=== PATIENT | female | born 1935 | race Caucasian/White ===

== ENCOUNTER 2019-10-01 07:13 | Outpatient (CLI) | payer MEDICARE, SELFPAY ==
[2019-10-01 07:47] LABS: Hematocrit 39.5 % (37.0-47.0); Hemoglobin 13.3 g/dL (12.0-15.0); Mean Corpuscular HGB Conc 33.7 g/dl (32-36); Mean Corpuscular Hemoglobin 33.2 pg (26-34); Mean Corpuscular Volume 98.5 fl (80-100); Platelet Count Result 314 k/mm3 (150-375); Red Blood Count 4.01 M/mm3 (4.2-5.4); Red Cell Distribution Width 13.1 % (11.5-14.5); White Blood Count 7.7 K/mm3 (4.5-10.0)
[2019-10-01 07:57] LABS: Hemoglobin A1C 6.1 % (<5.7)
[2019-10-01 08:06] LABS: Alanine Aminotransferase 16 U/L (4-35); Albumin Level 4.7 g/dL (3.5-5.1); Alkaline Phosphatase 68 U/L (38-126); Aspartate Amino Transferase 22 U/L (14-36); Bilirubin,Total 0.4 mg/dL (0.2-1.3); Blood Urea Nitrogen 16 mg/dL (7-17); Calcium 9.8 mg/dL (8.4-10.2); Carbon Dioxide 22 mmol/L (22-30); Chloride 106 mmol/L (98-107); Estimated Glomerular Filt Rate 48; Glucose 123 mg/dL (65-105); Potassium 4.8 mmol/L (3.4-5.0); Sodium 137 mmol/L (137-145)
[2019-10-01 08:34] LABS: Vitamin D 25 Hydroxy 53.8 ng/mL
== END 2019-10-01 07:14 | disposition home or self-care (01) ==
LOC: ANHLAB 07:15
PROVIDERS: PCP Family Medicine; Visit Provider Family Medicine
DX: E55.9 Vitamin D deficiency, unspecified (principal); E11.9 Type 2 diabetes mellitus without complications; R20.2 Paresthesia of skin; R53.83 Other fatigue; N18.3 Chronic kidney disease, stage 3 (moderate); D64.9 Anemia, unspecified
CPT/HCPCS: 36415; 80053; 82306; 83036; 84443; 85027

== ENCOUNTER 2020-06-15 09:00 | Outpatient (CLI) | payer MEDICARE, SELFPAY | END 2020-06-15 09:01 | disposition home or self-care (01) | LOC: ANHCOVIDVC 09:00 | PROVIDERS: PCP Family Medicine | DX: Z23 Encounter for immunization (principal) | CPT/HCPCS: 0001A; 91300 ==

== ENCOUNTER 2020-07-06 08:55 | Outpatient (CLI) | payer MEDICARE, SELFPAY | END 2020-07-06 08:56 | disposition home or self-care (01) | LOC: ANHCOVIDVC 08:55 | PROVIDERS: PCP Family Medicine | DX: Z23 Encounter for immunization (principal) | CPT/HCPCS: 0002A; 91300 ==

== ENCOUNTER 2020-07-19 07:06 | Outpatient (CLI) | payer MEDICARE, SELFPAY ==
[2020-07-19 07:42] LABS: Alanine Aminotransferase 17 U/L (4-35); Albumin Level 4.7 g/dL (3.5-5.1); Alkaline Phosphatase 59 U/L (38-126); Anion Gap 6 mmol/L (8-16); Aspartate Amino Transferase 29 U/L (14-36); Bilirubin,Total 0.2 mg/dL (0.2-1.3); Blood Urea Nitrogen 14 mg/dL (7-17); Calcium 9.6 mg/dL (8.4-10.2); Carbon Dioxide 31 mmol/L (22-30); Chloride 101 mmol/L (98-107); Cholesterol 183 mg/dL (0-200); Estimated Glomerular Filt Rate 47; Glucose 113 mg/dL (65-105); HDL Direct 46 mg/dL; Potassium 4.2 mmol/L (3.4-5.0); Sodium 138 mmol/L (137-145); Triglycerides 246 mg/dL (<150)
[2020-07-19 07:52] LABS: Iron 67 ug/dL (37-170)
[2020-07-19 07:53] LABS: Hematocrit 39.3 % (37.0-47.0); Hemoglobin 13.1 g/dL (12.0-15.0); Mean Corpuscular HGB Conc 33.3 g/dl (32-36); Mean Corpuscular Hemoglobin 33.5 pg (26-34); Mean Corpuscular Volume 100.5 fl (80-100); Mean Platelet Volume 10.4 fl (7.4-10.4); Platelet Count Result 300 k/mm3 (150-375); Red Blood Count 3.91 M/mm3 (4.2-5.4); Red Cell Distribution Width 13.4 % (11.5-14.5)
[2020-07-19 08:08] LABS: Percent Iron Saturation 26 % (20-50)
[2020-07-19 08:10] LABS: LDL Cholesterol Direct 89 mg/dL
[2020-07-19 08:20] LABS: Hemoglobin A1C 5.9 % (<5.7)
[2020-07-19 09:07] LABS: Folic Acid > 20.0 ng/mL (2.76->20)
== END 2020-07-19 07:07 | disposition home or self-care (01) ==
PROVIDERS: PCP Family Medicine; Visit Provider Family Medicine
DX: E78.2 Mixed hyperlipidemia (principal); E11.9 Type 2 diabetes mellitus without complications; E53.8 Deficiency of other specified B group vitamins; D50.9 Iron deficiency anemia, unspecified; I10 Essential (primary) hypertension
CPT/HCPCS: 36415; 80053; 80061; 82607; 82728; 82746; 83036; 83540; 83550; 84443; 85027

== ENCOUNTER 2021-01-17 09:59 | Outpatient (CLI) | payer MEDICARE, SELFPAY ==
--- NOTE | 2021-01-17 10:41 | ECHO_ITS ---
Patient Info Name: Yvette Charles Age: 85 years : 1935 Gender: Female Ht: 65 in Wt: 149 lbs BSA: 1.77 m2 HR: 101 bpm BP: 179 / 54 mmHg Heart Rhythm: Sinus Rhythm Exam Date: 01/17/2021 10:48 AM Exam Location: [facility] Patient Status: Outpatient Admit Date: 01/17/2021 Staff Ordering Physician: Erin Hou MD Surtass Analyst: Jennifer Rey RDCS Attending Provider: Erin Hou MD Referring Physician: Ameya GURROLA; Exam Type: CA echo doppler color flow Study Info Indications I35.0 - Nonrheumatic aortic (valve) stenosis Complete two-dimensional, color flow and Doppler transthoracic echocardiogram is performed. Summary 1. Complete two-dimensional, color flow and Doppler transthoracic echocardiogram is performed. 2. Left ventricular chamber dimension is normal. 3. Left ventricular systolic function is hyperdynamic, estimated at >70%. 4. There is mildly increased left ventricular wall thickness. 5. The left ventricular diastolic function is grade I diastolic dysfunction. 6. E/e' 29 is significantly elevated. 7. Left atrial chamber dimension is mildly enlarged. 8. There is severe aortic valve sclerosis. 9. There is severe aortic valve stenosis with a peak velocity of 350 cm/s, mean gradient of 31 mmHg, and aortic valve area of 0.8 cm2. 10. The mitral valve has not well visualized, severely calcified leaflets and severely calcified annulus. 11. There is moderate mitral valve stenosis based on valve area of 1.1 cm2 by continuity equation and mean gradient of 5 mmHg and peak gradient of 17 mmHg. Left Ventricle E/e' 29 is significantly elevated. Left ventricular chamber dimension is normal. Left ventricular systolic function is hyperdynamic, estimated at >70%. There is mildly increased left ventricular wall thickness. The left ventricular diastolic function is grade I diastolic dysfunction. Right Ventricle Right ventricular systolic function is normal and with normal TAPSE 1.8 cm.. Right ventricular chamber dimension is normal. Left Atria Left atrial chamber dimension is mildly enlarged. Right Atria Right atrial chamber dimension is normal. Aortic Valve The aortic valve is probable trileaflet. There is severe aortic valve sclerosis. There is severe aortic valve stenosis with a peak velocity of 350 cm/s, mean gradient of 31 mmHg, and aortic valve area of 0.8 cm2. There is no aortic valve regurgitation. Pulmonic Valve There is no pulmonic regurgitation. Mitral Valve The mitral valve has not well visualized, severely calcified leaflets and severely calcified annulus. There is moderate mitral valve stenosis based on valve area of 1.1 cm2 by continuity equation and mean gradient of 5 mmHg and peak gradient of 17 mmHg. There is no mitral valve regurgitation. Tricuspid Valve There is no tricuspid valve regurgitation. Pericardium/Pleural There is no pericardial effusion. Inferior Vena Cava Normal inferior vena cava with >50% collapse upon inspiration consistent with normal right atrial pressure, 5 mmHg. Aorta The aortic root size at the sinus of Valsalva is normal. Left Ventricular Outflow Tract Name Value Normal LVOT 2D LVOT Diameter 1.7 cm LVOT Doppler
== END 2021-01-17 10:00 | disposition home or self-care (01) ==
LOC: ANHCARD 10:00
PROVIDERS: PCP Family Medicine; Visit Provider Family Medicine
DX: I35.0 Nonrheumatic aortic (valve) stenosis (principal)
CPT/HCPCS: 93306

== ENCOUNTER 2021-03-21 08:45 | Outpatient (CLI) | payer MEDICARE, SELFPAY ==
[2021-03-21 09:25] LABS: Hematocrit 36.7 % (37.0-47.0); Hemoglobin 11.8 g/dL (12.0-15.0); Mean Corpuscular HGB Conc 32.2 g/dl (32-36); Mean Corpuscular Hemoglobin 33.1 pg (26-34); Mean Corpuscular Volume 102.8 fl (80-100); Mean Platelet Volume 9.6 fl (7.4-10.4); Platelet Count Result 375 k/mm3 (150-375); Red Blood Count 3.57 M/mm3 (4.2-5.4); Red Cell Distribution Width 13.5 % (11.5-14.5); White Blood Count 9.2 K/mm3 (4.5-10.0)
[2021-03-21 09:37] LABS: Hemoglobin A1C 5.2 % (<5.7)
[2021-03-21 09:42] LABS: Alanine Aminotransferase 15 U/L (4-35); Albumin Level 4.5 g/dL (3.5-5.1); Alkaline Phosphatase 71 U/L (38-126); Anion Gap 11 mmol/L (8-16); Aspartate Amino Transferase 25 U/L (14-36); Bilirubin,Total 0.2 mg/dL (0.2-1.3); Blood Urea Nitrogen 15 mg/dL (7-17); Carbon Dioxide 18 mmol/L (22-30); Chloride 105 mmol/L (98-107); Cholesterol 202 mg/dL (0-200); Estimated Glomerular Filt Rate 39; Glucose 107 mg/dL (65-110); HDL Direct 48 mg/dL; Potassium 4.8 mmol/L (3.4-5.0); Sodium 134 mmol/L (137-145); Triglycerides 282 mg/dL (<150)
[2021-03-21 09:52] LABS: LDL Cholesterol Direct 82 mg/dL
== END 2021-03-21 08:46 | disposition home or self-care (01) ==
PROVIDERS: PCP Family Medicine; Visit Provider Family Medicine
DX: R53.83 Other fatigue (principal); I10 Essential (primary) hypertension; E11.9 Type 2 diabetes mellitus without complications; E78.2 Mixed hyperlipidemia
CPT/HCPCS: 36415; 80053; 80061; 83036; 84443; 85027

== ENCOUNTER 2021-08-12 18:49 | Observation (INO) | payer MEDICARE, SELFPAY ==
--- NOTE | ~2021-08-12 | XR_ITS ---
EXAMINATION: XR chest 2V Exam Date/Time: 08/12/2021 19:20 CDT CLINICAL HISTORY: WEAK,CP DOWN LT SIDE ARM LAST NIGHT,COUGH X2WKS,HTN Comparison: 10/27/2016.. RESULT: Lines, tubes, and devices: None. Lungs and pleura: Senescent change and old granulomatous disease, otherwise clear. Cardiomediastinal silhouette: Stable cardiomediastinal silhouette. Other: No acute osseous or upper abdominal finding. IMPRESSION: No acute cardiopulmonary process Reviewed, dictated and finalized at location K.
--- NOTE | 2021-08-12 18:55 | ECG_ITS ---
Measurements Intervals [place] Rate: 87 P: 28 KS: 165 QRS: 40 QRSD: 78 T: 39 QT: 379 QTc: 457 Interpretive Statements SINUS RHYTHM VENTRICULAR PREMATURE COMPLEXES POSSIBLE LEFT ATRIAL ENLARGEMENT BORDERLINE ST ABNORMALITY- ANTEROLAT/INF LEADS BASELINE ARTIFACT- I, II, III, AVR BORDERLINE ECG Electronically Signed On 08-12-2021 19:58:29 CDT by Simone Claros D.O.
[2021-08-12 18:56] VITALS: BP 146/100; PULSE 90; RESP 18; TEMP 36.2; O2SAT 100
[2021-08-12 19:13] LABS: Basophils Percent Auto 0.2 % (0.2-1.2); Eosinophils Percent Auto 0.3 % (0-4.4); Hematocrit 30.4 % (37.0-47.0); Hemoglobin 9.9 g/dL (12.0-15.0); Immature Granulocyte Absolute 0.08 K/mm3 (0.00-0.031); Immature Granulocyte Percent A 0.6 % (0-0.5); Lymphocytes Absolute Auto 2.79 K/mm3 (0.9-3.2); Lymphocytes Percent Auto 20.1 % (18.3-44.2); Mean Corpuscular HGB Conc 32.6 g/dl (32-36); Mean Corpuscular Hemoglobin 32.8 pg (26-34); Mean Corpuscular Volume 100.7 fl (80-100); Mean Platelet Volume 9.8 fl (7.4-10.4); Monocytes Absolute Auto 1.4 K/mm3 (0.1-0.6); Neutrophils Absolute Auto 9.6 K/mm3 (1.3-6.7); Neutrophils Percent Auto 68.8 % (45.5-73.1); Platelet Count Result 358 k/mm3 (150-375); Red Blood Count 3.02 M/mm3 (4.2-5.4); Red Cell Distribution Width 13.8 % (11.5-14.5); White Blood Count 13.9 K/mm3 (4.5-10.0)
[2021-08-12 19:22] LABS: Alanine Aminotransferase 14 U/L (4-35); Albumin Level 4.1 g/dL (3.5-5.1); Alkaline Phosphatase 74 U/L (38-126); Anion Gap 10 mmol/L (8-16); Aspartate Amino Transferase 28 U/L (14-36); Bilirubin,Total < 0.1 mg/dL (0.2-1.3); Blood Urea Nitrogen 20 mg/dL (7-17); Calcium 8.7 mg/dL (8.4-10.2); Carbon Dioxide 18 mmol/L (22-30); Chloride 104 mmol/L (98-107); Estimated CRCL calculation 26 ml/min; Estimated Glomerular Filt Rate 39; Glucose 160 mg/dL (65-110); INR 1.2; Potassium 3.8 mmol/L (3.4-5.0); Prothrombin Time 14.9 Seconds (11.1-14.7); Sodium 132 mmol/L (137-145)
[2021-08-12 19:41] VITALS: BP 124/82; PULSE 104; RESP 18; O2SAT 100; O2SAT 97
[2021-08-12 19:52] LABS: Troponin I 0.819 ng/mL (0.000-0.034)
--- NOTE | 2021-08-12 19:56 | ED.GENADULT ---
HPI - General Adult General Chief complaint: Shortness of Breath/Dyspnea Stated complaint: sob Time Seen by Provider: 08/12/21 19:27 History of Present Illness HPI narrative: Patient is an 86-year-old female who presents the ER with chest pain. Intermittent since yesterday at 6 PM. Pain will last for couple hours at a time. Radiates to her left shoulder and then down her left arm. Symptoms are worsened with exertion. Better with sitting down. Patient initially felt like she might and prefers to at home so she did not call anybody. After making it through the night she contacted her daughters who encouraged her to come to the ER for further evaluation. Patient denies history of coronary disease. No history of cardiac stents. She reports history of mild aortic stenosis, echo from 2020 shows severe . She is seen Dr. Nguyen in the past. Patient also has been treated for UTI recently and is concerned that it was not adequately treated. No overt dysuria or urinary frequency. No fevers or chills. Related Data Allergies Allergy/AdvReac Type Severity Reaction Status Date / Time iron Allergy Unknown Nausea Verified 08/12/21 19:00 Isvsith-IEK-AjL Reductase Allergy Unknown SOME CAUSE Verified 08/12/21 19:00 Inhibitor SEVERE LEG [Geidkho-Bhh-Yoz Reductase CRAMPS Inhibitor] Egg Yolk Allergy Unknown N/V Uncoded 08/12/21 19:00 Review of Systems Review of Systems: All systems reviewed & are unremarkable except as noted in HPI and below Constitutional: Constitutional: Denies chills, Denies fever(s) and Reports weakness ENT: Denies nasal congestion and Denies sore throat Cardiovascular: Cardiovascular: Reports chest pain, Denies rapid heart rate and Reports radiating jaw, neck or arm pain Respiratory: Respiratory: Denies cough, Reports dyspnea and Denies wheezing Gastrointestinal: Gastrointestinal: Denies abdominal pain, Denies diarrhea, Reports nausea and Denies vomiting Neurologic: Denies syncope, Denies focal weakness and Denies numbness PMF Past Medical History Medical History (Updated 08/13/21 @ 00:10 by Bárbara Small DO) Anxiety Aortic stenosis Severe aortic stenosis noted on echocardiogram 01/2021 valve area 0.8, EF 70%, grade 1 diastolic dysfunction Chronic renal insufficiency, stage III (moderate) Cystitis Diabetic neuropathy Essential hypertension Functional diarrhea H/O Malignant melanoma Excised from her nose Hyperlipidemia associated with type 2 diabetes mellitus Intolerant to statins Iron deficiency anemia Memory loss Moderate mitral valve stenosis Stenosis of left carotid artery Type 2 diabetes mellitus Vitamin B12 deficiency Surgical History Surgical History (Updated 08/12/21 @ 20:59 by Bárbara Small DO) H/O: hysterectomy History of appendectomy History of left-sided carotid endarterectomy (02/2016) History of tonsillectomy and adenoidectomy Family History Family History (Updated 08/12/21 @ 21:01 by Bárbara Small DO) Father , At age 102 Family history of glaucoma Mother , At age 74 Breast cancer Daughter Diabetes mellitus Social History Social History (Updated 08/13/21 @ 00:11 by Bárbara Small DO) Social History: She lives in her own home. She is . Code status: DNR/DNI Surrogate decision maker: She wishes the responsibility to be was shared between her 3 daughters. Smoking status: Never smoker Second hand tobacco smoke exposure: No Alcohol intake: never Substance use: current Substance use type: does not use Gender identity (if verbalized by the patient): Female Spiritual care concerns: No Exam Narrative: GENERAL: Fatigued-appearing, well-nourished, and in no acute distress. HEAD: Normocephalic, atraumatic. ENT: Mucous membranes moist. CHEST: Clear to auscultation. No respiratory distress. Mild discomfort with palpation over left lateral chest wall superior to the breast. HEART: Regu
[2021-08-12] MEDS: ASPIRIN 81 MG CHEWABLE TABLET 324 MG PO (20:08)
[2021-08-12] MEDS: HEPARIN SODIUM 5,000 UNITS/ML VIAL 4000 UNITS IV PUSH (20:10)
[2021-08-12 20:31] LABS: NT Pro B Type Natriuretic Pept 7750 pg/mL (5-100)
[2021-08-12] MEDS: MORPHINE SULFATE (*CRX) 4 MG/ML INJ IV PUSH (20:42)
[2021-08-12] MEDS: HEPARIN SOD/D5W 100 UNITS/ML 25,000 UNITS/250 ML BAG 8 UNITS IV CONT (20:47)
[2021-08-12 20:52] VITALS: BP 139/68; PULSE 89; RESP 22; O2SAT 92; O2SAT 93
--- NOTE | 2021-08-12 20:52 | PM.IMHP ---
H&P: HPI History of Present Illness Date/Time: 08/12/21 22:40 Chief Complaint: Chest pain Narrative: 86-year-old female with past medical history of severe aortic stenosis, moderate mitral valve stenosis, hypertension, diabetes, carotid stenosis status post endarterectomy and hypertension who presented to the ER with chest pain and shortness of breath. The patient reports that she has been having dyspnea on exertion since last year. Her dyspnea on exertion has worsened over the last several days. Last night she was sitting watching TV when she developed sudden onset of left chest pain that radiated down her left arm. This pain with accompanied by cold sweats and nausea. She took 2 aspirins and went to bed. Her pain did improve after the aspirins but a took quite some time to resolve. Eventually her pain did resolve in she was able to fall asleep. However when she woke up in the morning and had recurrence of chest pain. Pain was worse with any movement or activity. She reports that the pain will last quite some time prior to improving. It sounds as if the pain did not completely resolve all day. She did take a couple more doses of aspirin with some improvement in her symptoms. She also took an Lucila-Blair for some stomach upset. She reports feeling nauseated but not having any vomiting. The nausea came on after the chest pain had already started. She denies any lower extremity swelling. She has noticed some sensation of heart racing associated with her chest pain. Her heart rate was normal in the ER. Her pain was a 10/10 in intensity last night. She reported that the pain was so bad she was that she would just thighs although it would go away. She denies any suicidal ideation. Her pain when she came to the ER with a 5/10 in intensity improved down to 3/10 in intensity prior to leaving the ER. By the time she arrived to the IMU her pain was gone. She is still having some headache. She reports that her chronic shortness breath has improved with 2 L nasal cannula applied in the ER. The patient had not had any documented hypoxia. She denies frequent headache. She did have recent urinary tract infection but denies any persistent symptoms. She has chronic functional diarrhea and loose stools that is unchanged from baseline. She denies any hematochezia or melena. She has chronic pain from external hemorrhoids. She does have diabetic peripheral neuropathy it is worse in her left foot than her right. She reports that her sense of taste has been off for the last year. She has subsequently had decreased appetite and thinks that she has may have had some weight loss. Review of Systems Review of Systems: 12 systems were reviewed with pertinent positives and negatives per HPI. Except as documented in the HPI, all other systems were reviewed and are negative. [facility] Past Medical History Medical History (Updated 08/13/21 @ 00:10 by Bárbara Small DO) Anxiety Aortic stenosis Severe aortic stenosis noted on echocardiogram 01/2021 valve area 0.8, EF 70%, grade 1 diastolic dysfunction Chronic renal insufficiency, stage III (moderate) Cystitis Diabetic neuropathy Essential hypertension Functional diarrhea H/O Malignant melanoma Excised from her nose Hyperlipidemia associated with type 2 diabetes mellitus Intolerant to statins Iron deficiency anemia Memory loss Moderate mitral valve stenosis Stenosis of left carotid artery Type 2 diabetes mellitus Vitamin B12 deficiency Surgical History Surgical History (Updated 08/12/21 @ 20:59 by Bárbara Small DO) H/O: hysterectomy History of appendectomy History of left-sided carotid endarterectomy (02/2016) History of tonsillectomy and adenoidectomy Family History Family History (Updated 08/12/21 @ 21:01 by Bárbara Small DO) Father , At age 102 Family history of glaucoma Mother , At age 74 Breast cancer Daughter Diabetes mellitus Social History Socia
[2021-08-12 22:02] VITALS: BP 128/72; PULSE 78; RESP 23; O2SAT 98
[2021-08-12 22:57] LABS: Add Urine Microscopic? YES; Appearance Urine Clear (Clear); Bacteria Urine Trace /hpf; Bilirubin Urine Negative (Negative); Color Urine Yellow (Yellow); Glucose Urine UA Negative (Negative); Ketones Urine Negative (Negative); Leukocyte Esterase Ur Trace LEU/UL (Negative); Nitrate Urine Negative (Negative); Protein Urine 1+ mg/dL (Negative); Specific Grav Ur 1.023 (1.001-1.035); Urobilinogen Urine Negative mg/dL (<2.0)
--- NOTE | 2021-08-12 23:00 | ADMGEN ---
This patient, Yvette Charles, was admitted to IMU Room 202-01. Patient/family oriented to hospital policies and general routines including ID bracelet, bed and alarms, visiting hours, pain management, procedures, bathroom and other care routines, personal items, smoking policy, room service/diet, and visiting hours. Information on how to activate the Rapid Response Team has been discussed. Patient/Family are encouraged to report perceived risks to care and to ask questions if they do not understand what they are told or what they should do.
[2021-08-12 23:01] LABS: Blood Urine Negative (Negative)
[2021-08-12 23:14] VITALS: BP 128/51; PULSE 85; RESP 18; TEMP 35.9; O2SAT 99
[2021-08-12 23:16] VITALS: BMI 24.6
[2021-08-12 23:21] LABS: Troponin I 0.985 ng/mL (0.000-0.034)
[2021-08-12 23:32] VITALS: PULSE 82; O2SAT 98
[2021-08-13] VITALS (19 sets, daily range): BP systolic 100–117; BP diastolic 38–68; PULSE 79–105; RESP 18–22; TEMP 36.1–36.6; O2SAT 92–100
[2021-08-13 03:19] LABS: Basophils Percent Auto 0.2 % (0.2-1.2); Eosinophils Percent Auto 0.1 % (0-4.4); Hematocrit 31.7 % (37.0-47.0); Hemoglobin 10.3 g/dL (12.0-15.0); Immature Granulocyte Absolute 0.06 K/mm3 (0.00-0.031); Immature Granulocyte Percent A 0.4 % (0-0.5); Lymphocytes Absolute Auto 2.12 K/mm3 (0.9-3.2); Lymphocytes Percent Auto 15.6 % (18.3-44.2); Mean Corpuscular HGB Conc 32.5 g/dl (32-36); Mean Corpuscular Hemoglobin 32.4 pg (26-34); Mean Corpuscular Volume 99.7 fl (80-100); Mean Platelet Volume 9.7 fl (7.4-10.4); Monocytes Percent Auto 7.1 % (2.6-8.5); Neutrophils Absolute Auto 10.4 K/mm3 (1.3-6.7); Neutrophils Percent Auto 76.6 % (45.5-73.1); Platelet Count Result 364 k/mm3 (150-375); Red Blood Count 3.18 M/mm3 (4.2-5.4); Red Cell Distribution Width 13.7 % (11.5-14.5); White Blood Count 13.6 K/mm3 (4.5-10.0)
[2021-08-13] MEDS: MORPHINE SULFATE (*CRX) 4 MG/ML INJ IV PUSH ×2 (03:30→20:21)
[2021-08-13 03:32] LABS: Partial Thromboplastin Time 98.7 SECONDS (22.3-36.8)
[2021-08-13] MEDS: ONDANSETRON INJ 4 MG/2 ML VIAL IV PUSH ×2 (03:35→20:19)
--- NOTE | 2021-08-13 04:03 | ECG_ITS ---
Measurements Intervals [place] Rate: 98 P: 30 RI: 142 QRS: 50 QRSD: 76 T: 5 QT: 351 QTc: 449 Interpretive Statements SINUS RHYTHM VENTRICULAR TRIGEMINY POSSIBLE LEFT ATRIAL ENLARGEMENT ST-T WAVE ABNORMALITY IN ANTEROLAT/INF LEADS- CONSIDER ISCHEMIA ABNORMAL ECG Electronically Signed On 08-13-2021 9:24:13 CDT by Simone Claros D.O.
[2021-08-13 08:37] LABS: Glucose Point of Care 150 mg/dl (65-105)
--- NOTE | 2021-08-13 08:52 | PM.CNCAR ---
Assessment and Plan Additional Plan This is a pleasant but unfortunate 86-year-old lady who comes into the hospital with symptoms of discomfort or she calls it distress in the region of the left shoulder into the interscapular region and down into the leg as well. The symptoms for that reason are somewhat unusual or atypical for ACS. She on examination today appears to have some very mild CHF. As stated in my note she is known to have severe aortic valve stenosis and in the office in February had made the decision not to pursue effective treatment of this. For this reason and the fact that she is a DNR patient she is not an appropriate candidate for being brought to the cardiac catheterization lab since she is declining affective treatment of her aortic valve disease. I will add some nitro paste and furosemide to her regimen today as she does appear to be in some mild CHF this morning. If she reconsiders her decisions regarding her code status and her willingness to undergo aortic valve replacement then she should be transferred to a facility where aortic valve replacement can occur. At this time conservative care is appropriate. Ryder Hanks MD [facility] History of Present Illness History of Present Illness Consult date/time: 08/13/21 08:52 Consult reason: chest pain and aortic stenosis Reason For Visit: NSTEMI Narrative: This is an 86-year-old woman I am seeing at the request of the hospitalist this morning because of some chest pain and elevation in her troponin levels that were sampled following admission and being seen in the emergency room yesterday. The patient states that she was in her usual state of health until Friday evening of this past weekend. She states that in general in the last couple of years she thinks she is failing in getting weaker. On Friday evening she noticed the onset of which she said is a sense of distress in her left shoulder in her left arm in the interscapular region and also down into the left leg. She has a very hard time explaining this symptom or describing it as a pain but she said it was a sense of distress. She lives alone with daughters nearby. She took a couple of aspirin tablets and went to bed. She thinks that eventually this at the symptoms did improve. When she got up on Friday she was still having some of this and feeling weak and a little bit more short of breath. She told her daughter that she would not feel well enough to go to sabianist with her yesterday morning and apparently later in the day her daughter came by and they had a visit in the home. Because of these symptoms there was discussion about coming to the hospital for evaluation. The patient initially stated she did not wish to be hospitalized because she does not want any big procedures or operations performed. She said she has made this clear to her family as well. After a longer discussion however the decision was made to come to the emergency room for evaluation. Her electrocardiogram shows a sinus mechanism with some PVCs. There is some nonspecific inferolateral ST segment depression. Troponin levels of course were sampled and they are mild to moderately elevated. The initial sample was 0.8 and it regina slightly to 1.1. She was placed on a heparin infusion and admitted to the hospital. The patient has a known history of significant aortic valve disease with aortic stenosis and was seen in consultation in February of 2021 in our office by Dr. Nguyen. At that time apparently she had had an echocardiogram done to evaluate her cardiac murmur at the request of her PCP but she was not reporting any symptoms. A discussion was had with the patient about a workup for aortic valve replacement and she declined any consideration of treating her aortic valve disease. It should also be noted that on admission to the hospital she is a do not resuscitate status. She has been kept NPO since admission for the possibility of catheterization. At th
[2021-08-13] MEDS: LOSARTAN POTASSIUM 100 MG TABLET PO (08:53)
[2021-08-13] MEDS: ATORVASTATIN 10 MG TABLET PO (08:54)
[2021-08-13] MEDS: METOPROLOL SUCCINATE EXT REL 50 MG TABCR PO (08:54)
[2021-08-13] MEDS: CITALOPRAM HYDROBROMIDE 20 MG TABLET PO (08:54)
[2021-08-13] MEDS: FUROSEMIDE INJ 40 MG/4 ML VIAL IV PUSH (08:57)
[2021-08-13] MEDS: NITROGLYCERIN OINTMENT 1 INCH DOSE 0.5 INCH TRANSDERM ×3 (09:00→20:16)
[2021-08-13] MEDS: ACETAMINOPHEN 325 MG TABLET 650 MG PO ×3 (10:10→22:12)
[2021-08-13 10:13] LABS: Partial Thromboplastin Time 72.1 SECONDS (22.3-36.8)
[2021-08-13 12:30] LABS: Glucose Point of Care 193 mg/dl (65-105)
--- NOTE | 2021-08-13 15:49 | PM.IMPN ---
Progress Note: A&P Assessment and Plan (1) Non-ST elevation UT (NSTEMI): Code(s): I21.4 - Non-ST elevation (NSTEMI) myocardial infarction Status: Acute Assessment and Plan: Management per Cardiology, concurrently on aspirin, Lipitor, losartan, metoprolol. Was previously on a heparin drip, this was discontinued. Consider adding Plavix. (2) Severe aortic stenosis: Code(s): I35.0 - Nonrheumatic aortic (valve) stenosis Status: Acute Assessment and Plan: Would recommend aortic valve replacement discussion, risks versus benefits, with Cardiology (3) Type 2 diabetes mellitus without complication, without long-term current use of insulin: Code(s): E11.9 - Type 2 diabetes mellitus without complications Status: Acute Assessment and Plan: Controlled on metformin, consistently with an A1c under 7, does not appear to have been checked recently, will order (4) Hyperlipidemia associated with type 2 diabetes mellitus: Code(s): E11.69 - Type 2 diabetes mellitus with other specified complication; E78.5 - Hyperlipidemia, unspecified Status: Acute Assessment and Plan: Unable to tolerate statins Subjective Date/time seen: 08/13/21 15:49 Patient resting comfortably without any symptoms. She denies chest pain, shortness a breath, nausea vomiting or diarrhea. No fevers or chills. She is currently not interested in pursuing interventional procedures at this time. Review of Systems Review of Systems: All systems reviewed & are unremarkable except as noted in HPI and below Exam Const: General: no acute distress HENMT: Mouth: Yes moist mucous membranes Eyes: General: appearance normal, both eyes and all related structures Neck: Neck: no JVD Resp: Auscultation: clear to auscultation bilaterally Cardio: Rate: regular rate Rhythm: regular rhythm Heart sounds: Murmur heart sound present GI: GI Palp: Yes Soft to palpation and No Tenderness to palpation present (GI) Psych: Mental Status: mental status grossly normal Objective Data Vital Signs Vital Signs: Vital Signs - 24 hr 08/12/21 18:56 08/12/21 19:41 08/12/21 20:52 Temperature 97.1 F L Pulse Rate 90 104 H 89 Respiratory Rate 18 18 22 H Blood Pressure 146/100 H 124/82 139/68 Pulse Oximetry 100 100 93 08/12/21 22:02 08/12/21 23:14 08/12/21 23:32 Temperature 96.7 F L Pulse Rate 78 85 82 Respiratory Rate 23 H 18 Blood Pressure 128/72 128/51 L Pulse Oximetry 98 99 98 08/13/21 02:00 08/13/21 03:23 08/13/21 04:00 Temperature 97 F L Pulse Rate 88 104 H 94 Respiratory Rate 22 H 22 H Blood Pressure 117/68 Pulse Oximetry 100 100 08/13/21 06:00 08/13/21 08:00 08/13/21 08:54 Temperature 97.3 F L Pulse Rate 96 90 97 Respiratory Rate 18 Blood Pressure 100/68 Pulse Oximetry 100 08/13/21 10:00 08/13/21 12:00 08/13/21 12:59 Temperature 97.9 F Pulse Rate 95 87 Respiratory Rate 18 Blood Pressure 100/38 L Pulse Oximetry 98 96 08/13/21 14:00 Temperature Pulse Rate 89 Respiratory Rate Blood Pressure Pulse Oximetry Intake/Output Intake/Output: Intake & Output 08/10/21 08/11/21 08/12/21 08/13/21 23:59 23:59 23:59 23:59 Intake Total 388.8 Output Total 1100 Balance -711.2 Meds/Results Medications: Active Medications Generic Name Dose Route Start Last Admin Trade Name Freq PRN Reason Stop Dose Admin Acetaminophen 650 mg 08/12/21 23:31 08/13/21 10:10 Acetaminophen 325 Mg Tablet PO 650 mg Q4H PRN Administration Pain Rated 1-3 Atorvastatin Calcium 10 mg 08/13/21 09:00 08/13/21 08:54 Atorvastatin 10 Mg Tablet PO 10 mg DAILY FRANCHESKA Administration Citalopram Hydrobromide 20 mg 08/13/21 09:00 08/13/21 08:54 Citalopram Hydrobromide 20 Mg Tablet PO 20 mg DAILY FRANCHESKA Administration Losartan Potassium 100 mg 08/13/21 09:00 08/13/21 08:53 Losartan Potassium 100 Mg Tablet PO 100 mg DAILY FRANCHESKA
--- NOTE | 2021-08-13 15:53 | PCNSR ---
On 08/13/21, the student, Janice Tejada, provided care and completed [facility] documentation on this patient. I have reviewed the student's documentation and agree with the findings.
[2021-08-13 17:08] LABS: Glucose Point of Care 162 mg/dl (65-105)
[2021-08-13 19:45] LABS: Hemoglobin A1C 5.5 % (<5.7)
--- NOTE | 2021-08-13 21:06 | ECHO_ITS ---
Patient Info Name: Yvette Charles Age: 86 years : 1935 Gender: Female Ht: 65 in Wt: 146 lbs BSA: 1.75 m2 HR: 93 bpm BP: 117 / 68 mmHg Heart Rhythm: Sinus Rhythm Technical Quality: Fair Exam Date: 08/13/2021 11:10 AM Exam Location: [facility] Exam Room: [facility] Patient Status: Inpatient Admit Date: 08/12/2021 Staff Ordering Physician: Bárbara Small DO Associate Chemist: Velia Foster RDCS Attending Provider: Renetta Marcus DO Referring Physician: Geovanny RAMOS; Exam Type: CA echo doppler color flow Study Info Indications - AV STENOSIS NON STEMI Complete two-dimensional, color flow and Doppler transthoracic echocardiogram is performed. Summary 1. Complete two-dimensional, color flow and Doppler transthoracic echocardiogram is performed. 2. Left ventricular systolic function is normal, estimated at 50-55%. 3. The apical septal segment is hypodynamic. 4. There is moderate to severe aortic valve stenosis with a peak velocity of 301 cm/s, mean gradient of 22 mmHg, and aortic valve area of 1.2 cm2. 5. There is mild mitral stenosis. Left Ventricle Left ventricular systolic function is normal, estimated at 50-55%. The apical septal segment is hypodynamic. Left ventricular chamber dimension is normal. There is moderate concentric increased left ventricular wall thickness. The left ventricular diastolic function is grade I diastolic dysfunction. Right Ventricle Right ventricular chamber dimension is normal. Left Atria Left atrial chamber dimension is moderately enlarged. Right Atria Right atrial chamber dimension is normal. Aortic Valve There is moderate to severe aortic valve stenosis with a peak velocity of 301 cm/s, mean gradient of 22 mmHg, and aortic valve area of 1.2 cm2. The aortic valve is trileaflet. There is severe aortic valve sclerosis. Pulmonic Valve The pulmonic valve is normal. Mitral Valve There is mild mitral stenosis. The mitral valve has normal leaflets. There is mild mitral valve regurgitation. The mitral valve annulus is severely calcified. Tricuspid Valve The tricuspid valve leaflets are normal. There is mild tricuspid valve stenosis. Moderate pulmonary hypertension, estimated pulmonary arterial systolic pressure is 57 mmHg. Pericardium/Pleural The pericardium appears normal. Aorta The aortic root size at the sinus of Valsalva is normal. Left Ventricular Outflow Tract Name Value Normal LVOT 2D LVOT Diameter 2.0 cm LVOT Doppler LVOT Peak Gradient 6 mmHg LVOT Mean Gradient 4 mmHg LVOT VTI 28 cm LVOT VTI/AV VTI Ratio 0.4 LVOT Stroke Volume 85 ml LVOT CO 16.4 l/min LVOT CI 9.3 l/min/m2 Pulmonic Valve Name Value Normal PV Doppler
[2021-08-13] MEDS: NITROGLYCERIN SL 0.4 MG TABLET SUBLINGUAL ×3 (22:32→22:45)
[2021-08-13] MEDS: ALPRAZolam (*CRX) 0.25 MG TABLET PO (23:45)
[2021-08-14] VITALS (15 sets, daily range): BP systolic 92–118; BP diastolic 45–65; PULSE 77–122; RESP 16–22; TEMP 36.3–37; O2SAT 88–100
--- NOTE | 2021-08-14 00:43 | ECG_ITS ---
Measurements Intervals [place] Rate: 121 P: 59 [place]: 149 QRS: 73 QRSD: 90 T: 48 QT: 334 QTc: 476 Interpretive Statements SINUS TACHYCARDIA FREQUENT VENTRICULAR PREMATURE COMPLEXES ST-T WAVE ABNORMALITY IN ANTEROLATERAL LEADS- CONSIDER ISCHEMIA ABNORMAL ECG Electronically Signed On 08-14-2021 6:13:40 CDT by Simone Claros D.O.
[2021-08-14] MEDS: ONDANSETRON INJ 4 MG/2 ML VIAL IV PUSH (00:57)
[2021-08-14 01:02] LABS: Glucose Point of Care 207 mg/dl (65-105)
[2021-08-14 01:32] LABS: Basophils Percent Auto 0.1 % (0.2-1.2); Eosinophils Percent Auto 0.1 % (0-4.4); Hematocrit 30.2 % (37.0-47.0); Hemoglobin 10.1 g/dL (12.0-15.0); Immature Granulocyte Absolute 0.12 K/mm3 (0.00-0.031); Immature Granulocyte Percent A 0.6 % (0-0.5); Lymphocytes Absolute Auto 1.41 K/mm3 (0.9-3.2); Lymphocytes Percent Auto 7.5 % (18.3-44.2); Mean Corpuscular HGB Conc 33.4 g/dl (32-36); Mean Corpuscular Hemoglobin 32.8 pg (26-34); Mean Corpuscular Volume 98.1 fl (80-100); Mean Platelet Volume 9.6 fl (7.4-10.4); Monocytes Absolute Auto 1.2 K/mm3 (0.1-0.6); Monocytes Percent Auto 6.6 % (2.6-8.5); Neutrophils Absolute Auto 16.1 K/mm3 (1.3-6.7); Neutrophils Percent Auto 85.1 % (45.5-73.1); Platelet Count Result 398 k/mm3 (150-375); Red Blood Count 3.08 M/mm3 (4.2-5.4); Red Cell Distribution Width 13.5 % (11.5-14.5); White Blood Count 18.9 K/mm3 (4.5-10.0)
[2021-08-14 01:39] LABS: Anion Gap 12 mmol/L (8-16); Blood Urea Nitrogen 23 mg/dL (7-17); Calcium 8.8 mg/dL (8.4-10.2); Carbon Dioxide 16 mmol/L (22-30); Chloride 100 mmol/L (98-107); Estimated CRCL calculation 26 ml/min; Estimated Glomerular Filt Rate 39; Glucose 225 mg/dL (65-110); Magnesium 2.2 mg/dL (1.6-2.3); Potassium 3.6 mmol/L (3.4-5.0); Sodium 128 mmol/L (137-145)
[2021-08-14] MEDS: NITROGLYCERIN OINTMENT 1 INCH DOSE 0.5 INCH TRANSDERM ×4 (04:00→20:21)
[2021-08-14] MEDS: METOPROLOL SUCCINATE EXT REL 50 MG TABCR PO (08:26)
[2021-08-14] MEDS: ACETAMINOPHEN 325 MG TABLET 650 MG PO ×2 (08:27→12:26)
[2021-08-14] MEDS: LOSARTAN POTASSIUM 100 MG TABLET PO (08:27)
[2021-08-14] MEDS: CITALOPRAM HYDROBROMIDE 20 MG TABLET PO (08:27)
[2021-08-14] MEDS: ATORVASTATIN 10 MG TABLET PO (08:27)
[2021-08-14] MEDS: ALPRAZolam (*CRX) 0.25 MG TABLET PO ×3 (08:28→22:17)
--- NOTE | 2021-08-14 08:48 | PM.PNCARD ---
Progress Note: A&P Assessment and Plan (1) Severe aortic stenosis: Code(s): I35.0 - Nonrheumatic aortic (valve) stenosis Status: Acute Assessment and Plan: She was previously evaluated by Dr. Nguyen and at that time decided not to pursue any invasive treatment for this. Continue medical management (2) Non-ST elevation [place] (NSTEMI): Code(s): I21.4 - Non-ST elevation (NSTEMI) myocardial infarction Status: Acute Assessment and Plan: Entered the hospital with complaints of aching in the left shoulder and intrascapular area. Not felt to be typical of ACS. She did also have a rise in her troponin levels. She has declined any invasive workup and is currently DNR therefore left heart catheterization will not be pursued at this time. She also mentioned to me today that she is considering hospice care and plans to have a discussion with her daughters regarding this wish today. Conservative medical management Continue statin Continue metoprolol Continue losartan She has nitroglycerin available She did have a recurrence of chest pain last night with EKG showing ST depression in the anterolateral leads. She continues to express disinterest in pursuing any invasive cardiac workup, and as previously mentioned, if she were to reconsider and wish to pursue TAVR, coronary angiogram would need to take place at a facility that could accomplish TAVR as well. Patient tells me she is considering hospice and has plans to discuss with her daughters today Continue conservative medical management. Subjective Date/time seen: 08/14/21 08:48 Cardiology follow up for chest pain, CHF Reports an episode of upper left chest and shoulder pain last night that is persisting this morning but has improved. She also has Review of Systems Constitutional: Constitutional: Reports fatigue and Reports lethargy Eyes: Eyes: Reports no additional eye complaints ENT: Reports system reviewed and no additional complaints, except as documented Cardiovascular: Cardiovascular: Reports as per HPI, Reports chest pain and Reports dyspnea on exertion Respiratory: Respiratory: Reports dyspnea on exertion Gastrointestinal: Gastrointestinal: Reports no additional gastrointestinal complaints Musculoskeletal: Musculoskeletal: Reports back pain Integumentary/Breasts: Skin/Breast: Reports system reviewed and no additional complaints, except as docu Neurologic: Reports system reviewed and no additional complaints, except as documented Psychiatric: Psychiatric: Reports no additional psychiatric complaints Endocrine: Endocrine: Reports no additional endocrine complaints and Reports fatigue Hematologic/Lymphatic: Hematologic/Lymphatic: Reports no additional hematologic/lymphatic complaints Allergic/Immunologic: Allergic/Immunologic: Reports no additional allergic/immunologic complaints Exam Const: General: no acute distress and uncomfortable Other: Pleasant elderly lady appears to be in no significant distress. She does report some shoulder and chest pain last night and has a heating pad in place HENMT: Mouth: Yes moist mucous membranes Eyes: Sclera: sclerae normal Pupils: Equal, round and reactive pupils present Neck: Neck: supple and no JVD Resp: Effort & Inspection: normal respiratory effort Auscultation: rales bilateral at the base Cardio: Rate: regular rate Rhythm: regular rhythm Heart sounds: Murmur heart sound present systolic II/ and at the base GI: Auscultation: normal bowel sounds Skin: General skin exam: normal color Neuro: Cranial nerves: Yes Equal, round and reactive pupils present Cognition (Neuro): normal cognition Extrem: General: normal to inspection Objective Data Vital Signs Vital Signs: Vital Signs - 24 hr 08/13/21 08:54 08/13/21 10:00 08/13/21 12:00 Temperature 36.6 C Pulse Rate 97 95 87 Respiratory Rate 18 Blood Pressure 100/38 L Pulse Oximetry 98 08/13/21 12:59 08/13/21
--- NOTE | 2021-08-14 09:54 | PM.DS ---
DS: Admitting Diagnosis Discharge Date 08/14/21 Admitting Diagnosis (1) Non-ST elevation [place] (NSTEMI): Code(s): I21.4 - Non-ST elevation (NSTEMI) myocardial infarction Status: Acute (2) Severe aortic stenosis: Code(s): I35.0 - Nonrheumatic aortic (valve) stenosis Status: Acute DS: Discharge Diagnosis Discharge Diagnosis (1) Severe aortic stenosis: Code(s): I35.0 - Nonrheumatic aortic (valve) stenosis Status: Acute (2) Non-ST elevation [place] (NSTEMI): Code(s): I21.4 - Non-ST elevation (NSTEMI) myocardial infarction Status: Acute (3) Hyperlipidemia associated with type 2 diabetes mellitus: Code(s): E11.69 - Type 2 diabetes mellitus with other specified complication; E78.5 - Hyperlipidemia, unspecified Status: Acute (4) Chronic renal insufficiency, stage III (moderate): Code(s): N18.3 - Chronic kidney disease, stage 3 (moderate) Status: Acute (5) Type 2 diabetes mellitus without complication, without long-term current use of insulin: Code(s): E11.9 - Type 2 diabetes mellitus without complications Status: Acute DS: Summary Time Spent with Patient Time attestation: Total time spent providing and/or coordinating discharge services: Exam Narrative: GEN: NAD, AAOx2, cooperative HEENT: NCAT, MMM, EOMI Neck: no JVD Heart: S1S2 RRR Lungs: CTA B/l Abd: soft, NT, ND, bowel sounds normoactive Ext: moves all, no cyanosis, no clubbing, no edema Neuro: slow cognition, moves all extremities equally, unsteady gait Psych: mood reduced, affect congruent flattened, poor eye contact DS: Data Data Completed and Pending Labs on day of discharge: Labs from last 24 hours 08/14/21 08/14/21 08/14/21 01:21 01:21 01:21 WBC 18.9 H RBC 3.08 L Hgb 10.1 L Hct 30.2 L MCV 98.1 MCH 32.8 MCHC 33.4 RDW 13.5 Plt Count 398 H MPV 9.6 Immature Gran % (Auto) 0.6 H Neut % (Auto) 85.1 H Lymph % (Auto) 7.5 L [place] % (Auto) 6.6 Eos % (Auto) 0.1 Baso % (Auto) 0.1 L Lymph # (Auto) 1.41 [place] # (Auto) 1.2 H Eos # (Auto) 0.0 Baso # (Auto) 0.0 Abs Immat Gran (auto) 0.12 H Absolute Neuts (auto) 16.1 H Absolute Nucleated RBC 0.0 Nucleated RBC % 0.0 APTT Sodium 128 L Potassium 3.6 Chloride 100 Carbon Dioxide 16 L Anion Gap 12 BUN 23 H Creatinine 1.30 H Estim Creat Clear Calc 26 Estimated GFR 39 L Glucose 225 H POC Capillary Glucose Hemoglobin A1c Calcium 8.8 Magnesium 2.2 Cancelled 08/14/21 08/13/21 08/13/21 00:59 19:06 16:01 WBC RBC Hgb Hct MCV MCH MCHC RDW Plt Count MPV Immature Gran % (Auto) Neut % (Auto) Lymph % (Auto) York % (Auto) Eos % (Auto) Baso % (Auto) Lymph # (Auto) York # (Auto) Eos # (Auto) Baso # (Auto) Abs Immat Gran (auto) Absolute Neuts (auto) Absolute Nucleated RBC Nucleated RBC % APTT Sodium Potassium Chloride Carbon Dioxide Anion Gap BUN Creatinine Estim Creat Clear Calc Estimated GFR Glucose POC Capillary Glucose 207 H 162 H Hemoglobin A1c 5.5 Calcium Magnesium 08/13/21 08/13/21 12:06 09:37 WBC RBC Hgb Hct MCV MCH MCHC RDW Plt Count MPV Immature Gran % (Auto) Neut % (Auto) Lymph % (Auto) [place] % (Auto) Eos % (Auto) Baso % (Auto) Lymph # (Auto) [place] # (Auto) Eos # (Auto) Baso # (Auto) Abs Immat Gran (auto) Absolute Neuts (auto) Absolute Nucleated RBC Nucleated RBC % APTT 72.1 H Sodium Potassium Chloride Carbon Dioxide Anion Gap BUN Creatinine Estim Creat Clear Calc Estimated GFR Glucose POC Capillary Glucose 193 H Hemoglobin A1c Calcium Magnesium Discharge Plan Discharge Attending physician on discharge: Airam Bassett Consulting providers: [facility],
--- NOTE | 2021-08-14 15:37 | PM.IMPN ---
Progress Note: A&P Assessment and Plan (1) Severe aortic stenosis: Code(s): I35.0 - Nonrheumatic aortic (valve) stenosis Status: Acute (2) Non-ST elevation [place] (NSTEMI): Code(s): I21.4 - Non-ST elevation (NSTEMI) myocardial infarction Status: Acute (3) Hyperlipidemia associated with type 2 diabetes mellitus: Code(s): E11.69 - Type 2 diabetes mellitus with other specified complication; E78.5 - Hyperlipidemia, unspecified Status: Acute (4) Chronic renal insufficiency, stage III (moderate): Code(s): N18.3 - Chronic kidney disease, stage 3 (moderate) Status: Acute (5) Type 2 diabetes mellitus without complication, without long-term current use of insulin: Code(s): E11.9 - Type 2 diabetes mellitus without complications Status: Acute (6) Essential hypertension: Code(s): I10 - Essential (primary) hypertension Status: Acute (7) Anxiety: Code(s): F41.9 - Anxiety disorder, unspecified Status: Acute Additional Plan 08/13/21 Management per Cardiology, concurrently on aspirin, Lipitor, losartan, metoprolol. Was previously on a heparin drip, this was discontinued. Consider adding Plavix. Would recommend aortic valve replacement discussion, risks versus benefits, with Cardiology Controlled on metformin, consistently with an A1c under 7, does not appear to have been checked recently, will order Unable to tolerate statins 08/14/21 ASA/plavix started cont on BB is taking lipitor but previously reported Statin intolerance will monitor chest pain -> tylenol and norco w morphine x break through c/s PT/OT c/s CC x SNF planning Subjective Date/time seen: 08/14/21 15:37 pt reports severe pain in her left shoulder and chest overnight. She requested I returned to speak with her daughters when they arrive. I have returned to speak with all of them together and he we have reviewed Yvette's wishes for DNR in decline of intervention for aortic stenosis. Patient and family would like her to go to rehab to regain her strength prior to returning home. They would like to explore options for initiating hospice in home with Yvette leaves rehab. RN is present during this conversation. Will place orders for respite care provider to arrange for fci facility and for referral for information from hospice Exam Narrative: GEN: NAD, AAOx3, cooperative HEENT: NCAT, MMM, EOMI Neck: no JVD Lungs: symmetric chest rise no use of accessory muscles Abd: soft, NT, ND Ext: moves all, no cyanosis, no clubbing Neuro: cognition WNL, moves all extremities equally, CN intact Psych: mood and affect congruent Objective Data Vital Signs Vital Signs: Vital Signs - 24 hr 08/13/21 16:00 08/13/21 20:00 08/13/21 20:02 Temperature 97.2 F L 97.5 F L Pulse Rate 79 94 84 Respiratory Rate 22 H 20 Blood Pressure 108/50 L 112/51 L Pulse Oximetry 98 96 96 08/13/21 20:03 08/13/21 20:46 08/13/21 22:31 Temperature Pulse Rate 93 87 101 H Respiratory Rate Blood Pressure 117/60 Pulse Oximetry 96 92 08/13/21 22:39 08/13/21 22:45 08/13/21 22:51 Temperature Pulse Rate 105 H 102 H 101 H Respiratory Rate Blood Pressure 102/55 L 117/53 L 107/45 L Pulse Oximetry 94 08/14/21 00:00 08/14/21 00:40 08/14/21 04:00 Temperature 98.6 F 97.3 F L Pulse Rate 106 H 120 H 118 H Respiratory Rate 22 H 20 Blood Pressure 95/45 L 97/50 L Pulse Oximetry 100 93 08/14/21 06:01 08/14/21 08:00 08/14/21 08:11 Temperature 97.9 F Pulse Rate 116 H 115 H Respiratory Rate 20 Blood Pressure 113/65 Pulse Oximetry 96 92 08/14/21 08:26 08/14/21 10:00 08/14/21 12:00 Temperature Pulse Rate 111 H 77 97 Respiratory Rate Blood Pressure Pulse Oximetry 08/14/21 12:24 08/14/21 14:00 Temperature 98.3 F Pulse Rate 102 H 98 Respiratory Rate 16 Blood Pressure 107/54 L Pulse Oximetry 96 Intake/Output Intake/Output: Intake & Output 07/15
[2021-08-14] MEDS: HYDROcodone/acetaminophen (*CRX) 5-325 MG TABLET 1 TAB PO ×2 (16:54→23:00)
[2021-08-15] VITALS (11 sets, daily range): BP systolic 95–119; BP diastolic 44–68; PULSE 66–124; RESP 16–22; TEMP 36.2–36.9; O2SAT 92–95
[2021-08-15] MEDS: ONDANSETRON INJ 4 MG/2 ML VIAL IV PUSH (00:53)
[2021-08-15] MEDS: MORPHINE SULFATE (*CRX) 2 MG/ML INJ IV PUSH (00:53)
[2021-08-15] MEDS: NITROGLYCERIN OINTMENT 1 INCH DOSE 0.5 INCH TRANSDERM ×4 (04:00→21:10)
[2021-08-15] MEDS: ASPIRIN 81 MG CHEWABLE TABLET PO (09:00)
[2021-08-15] MEDS: ATORVASTATIN 10 MG TABLET PO (09:00)
[2021-08-15] MEDS: LOSARTAN POTASSIUM 100 MG TABLET PO (09:00)
[2021-08-15] MEDS: CLOPIDOGREL BISULFATE 75 MG TABLET PO (09:00)
[2021-08-15] MEDS: CITALOPRAM HYDROBROMIDE 20 MG TABLET PO (09:00)
[2021-08-15] MEDS: METOPROLOL SUCCINATE EXT REL 50 MG TABCR PO (09:01)
--- NOTE | 2021-08-15 09:46 | PM.IMPN ---
Progress Note: A&P Assessment and Plan (1) Severe aortic stenosis: Code(s): I35.0 - Nonrheumatic aortic (valve) stenosis Status: Acute (2) Non-ST elevation [place] (NSTEMI): Code(s): I21.4 - Non-ST elevation (NSTEMI) myocardial infarction Status: Acute (3) Hyperlipidemia associated with type 2 diabetes mellitus: Code(s): E11.69 - Type 2 diabetes mellitus with other specified complication; E78.5 - Hyperlipidemia, unspecified Status: Acute (4) Chronic renal insufficiency, stage III (moderate): Code(s): N18.3 - Chronic kidney disease, stage 3 (moderate) Status: Acute (5) Type 2 diabetes mellitus without complication, without long-term current use of insulin: Code(s): E11.9 - Type 2 diabetes mellitus without complications Status: Acute (6) Essential hypertension: Code(s): I10 - Essential (primary) hypertension Status: Acute (7) Anxiety: Code(s): F41.9 - Anxiety disorder, unspecified Status: Acute Additional Plan 08/13/21 Management per Cardiology, concurrently on aspirin, Lipitor, losartan, metoprolol. Was previously on a heparin drip, this was discontinued. Consider adding Plavix. Would recommend aortic valve replacement discussion, risks versus benefits, with Cardiology Controlled on metformin, consistently with an A1c under 7, does not appear to have been checked recently, will order Unable to tolerate statins 08/14/21 ASA/plavix started cont on BB is taking lipitor but previously reported Statin intolerance will monitor chest pain -> tylenol and norco w morphine x break through c/s PT/OT c/s CC x SNF planning 08/15/21 pt doing ok daughters bedside no new complaints chest pain resolving transfer to 3rd floor when bed available Subjective Date/time seen: 08/15/21 09:46 pt doing ok cp improving Exam Narrative: GEN: NAD, AAOx3, cooperative HEENT: NCAT, MMM, EOMI Neck: no JVD Lungs: symmetric chest rise no use of accessory muscles Abd: soft, NT, ND Ext: moves all, no cyanosis, no clubbing Neuro: cognition WNL, moves all extremities equally, CN intact Psych: mood and affect congruent Objective Data Vital Signs Vital Signs: Vital Signs - 24 hr 08/14/21 10:00 08/14/21 12:00 08/14/21 12:24 Temperature 98.3 F Pulse Rate 77 97 102 H Respiratory Rate 16 Blood Pressure 107/54 L Pulse Oximetry 96 08/14/21 14:00 08/14/21 16:00 08/14/21 18:00 Temperature 98.3 F Pulse Rate 98 96 96 Respiratory Rate 20 Blood Pressure 92/60 L Pulse Oximetry 88 L 08/14/21 20:00 08/14/21 22:00 08/15/21 00:00 Temperature 98.2 F 98.4 F Pulse Rate 100 109 H 109 H Respiratory Rate 20 20 Blood Pressure 118/56 L 119/68 Pulse Oximetry 97 92 08/15/21 02:00 08/15/21 04:00 08/15/21 06:00 Temperature Pulse Rate 105 H 109 H 99 Respiratory Rate Blood Pressure Pulse Oximetry 08/15/21 08:00 Temperature 97.6 F Pulse Rate 110 H Respiratory Rate 16 Blood Pressure 104/65 Pulse Oximetry 92 Intake/Output Intake/Output: Intake & Output 08/12/21 08/13/21 08/14/21 08/15/21 23:59 23:59 23:59 23:59 Intake Total 878.8 700 250 Output Total 1350 Balance -471.2 700 250 Meds/Results Medications: Active Medications Generic Name Dose Route Start Last Admin Trade Name Freq PRN Reason Stop Dose Admin Acetaminophen 650 mg 08/14/21 15:33 Acetaminophen 325 Mg Tablet PO Q4H PRN Pain Rated 1-6 Hydrocodone Bitart/Acetaminophen 1 tab 08/14/21 15:31 08/14/21 23:00 Hydrocodone/Acetaminophen (*Crx) 5-325 Mg Tablet PO 1 tab Q6H PRN Administration Pain Rated 7-10 Alprazolam 0.25 mg 08/13/21 23:03 08/14/21 22:17 Alprazolam (*Crx) 0.25 Mg Tablet PO 0.25 mg Q6HR PRN Administration Anxiety Aspirin 81 mg 08/15/21 08:00 08/15/21 09:00 Aspirin 81 Mg Chewable Tablet PO 81 mg DAILY@0800 FRANCHESKA Administration Atorvastatin Calcium 10 mg 08/13/21 09:00 05/0
[2021-08-15] MEDS: HYDROcodone/acetaminophen (*CRX) 5-325 MG TABLET 1 TAB PO (13:47)
[2021-08-15 16:21] LABS: EDCOVIDSCREEN Negative (Negative)
--- NOTE | 2021-08-15 17:34 | PC.NURSE ---
This patient, Yvette Charles, was received from [ [id number]] on 08/15/21 at 1715. Patient/family oriented to unit policies and routines
[2021-08-15] MEDS: ACETAMINOPHEN 325 MG TABLET 650 MG PO (21:33)
[2021-08-15 22:51] LABS: Glucose Point of Care 180 mg/dl (65-105)
[2021-08-16] VITALS (7 sets, daily range): BP systolic 100–118; BP diastolic 59–74; PULSE 88–110; RESP 18–20; TEMP 36.3–37.1; O2SAT 92–98
[2021-08-16] MEDS: NITROGLYCERIN OINTMENT 1 INCH DOSE 0.5 INCH TRANSDERM ×2 (02:31→09:16)
[2021-08-16 07:44] LABS: Glucose Point of Care 148 mg/dl (65-105)
[2021-08-16] MEDS: ALPRAZolam (*CRX) 0.25 MG TABLET PO ×2 (09:14→15:29)
[2021-08-16] MEDS: HYDROcodone/acetaminophen (*CRX) 5-325 MG TABLET 1 TAB PO ×2 (09:14→15:29)
[2021-08-16] MEDS: ATORVASTATIN 10 MG TABLET PO (09:15)
[2021-08-16] MEDS: CLOPIDOGREL BISULFATE 75 MG TABLET PO (09:15)
[2021-08-16] MEDS: METOPROLOL SUCCINATE EXT REL 50 MG TABCR PO (09:15)
[2021-08-16] MEDS: CITALOPRAM HYDROBROMIDE 20 MG TABLET PO (09:16)
[2021-08-16] MEDS: LOSARTAN POTASSIUM 100 MG TABLET PO (09:16)
[2021-08-16] MEDS: ASPIRIN 81 MG CHEWABLE TABLET PO (09:16)
--- NOTE | 2021-08-16 15:33 | PCCCNOTE ---
On 08/16/21, the student, [Cassie Antunez], provided care and completed [facility] documentation on this patient. I have reviewed the student's documentation and agree with the findings.
--- NOTE | 2021-08-16 17:30 | PM.IMPN ---
Progress Note: A&P Assessment and Plan (1) Severe aortic stenosis: Code(s): I35.0 - Nonrheumatic aortic (valve) stenosis Status: Acute (2) Non-ST elevation [place] (NSTEMI): Code(s): I21.4 - Non-ST elevation (NSTEMI) myocardial infarction Status: Acute (3) Hyperlipidemia associated with type 2 diabetes mellitus: Code(s): E11.69 - Type 2 diabetes mellitus with other specified complication; E78.5 - Hyperlipidemia, unspecified Status: Acute (4) Chronic renal insufficiency, stage III (moderate): Code(s): N18.3 - Chronic kidney disease, stage 3 (moderate) Status: Acute (5) Type 2 diabetes mellitus without complication, without long-term current use of insulin: Code(s): E11.9 - Type 2 diabetes mellitus without complications Status: Acute (6) Essential hypertension: Code(s): I10 - Essential (primary) hypertension Status: Acute (7) Anxiety: Code(s): F41.9 - Anxiety disorder, unspecified Status: Acute Additional Plan 08/13/21 Management per Cardiology, concurrently on aspirin, Lipitor, losartan, metoprolol. Was previously on a heparin drip, this was discontinued. Consider adding Plavix. Would recommend aortic valve replacement discussion, risks versus benefits, with Cardiology Controlled on metformin, consistently with an A1c under 7, does not appear to have been checked recently, will order Unable to tolerate statins 08/14/21 ASA/plavix started cont on BB is taking lipitor but previously reported Statin intolerance will monitor chest pain -> tylenol and norco w morphine x break through c/s PT/OT c/s CC x SNF planning 08/15/21 pt doing ok daughters bedside no new complaints chest pain resolving transfer to 3rd floor when bed available 08/16/21 dc nitro patch tylenol for [place]STON SL nitro PRN x chest pain morphine for CP norco PRN x shoulder sk/mus pain PT/OT transfer to private room when available pending transfer to rehab for improved level of fxn prior to returning home pt would like to live independently under the care of hospice at home possible dc tomorrow Subjective Date/time seen: 08/16/21 17:30 Senior Tax Analyst called and private room requested, pt has been placed in a room w screaming roommate while admitted for NSTEMI. notably distressed. Family in agreement for her to move. pt continues to complain of chest pain improved w nitro but reports severe headache, nitro patched removed w use SL tabs Exam Narrative: GEN: NAD, AAOx3, cooperative HEENT: NCAT, MMM, EOMI Neck: no JVD Skin Chest wall: NTTP Lungs: symmetric chest rise no use of accessory muscles Abd: soft, NT, ND Ext: moves all, no cyanosis, no clubbing , no pain w passive or active range of motion of LUE Neuro: cognition WNL, moves all extremities equally, CN intact Psych: mood and affect congruent Objective Data Vital Signs Vital Signs: Vital Signs - 24 hr 08/15/21 17:36 08/15/21 20:00 08/15/21 21:02 Temperature 97.1 F L Pulse Rate 66 Respiratory Rate 18 Blood Pressure 97/65 L Pulse Oximetry 95 95 93 08/15/21 22:00 08/16/21 05:31 08/16/21 07:40 Temperature 97.6 F 98.8 F Pulse Rate 95 100 88 Respiratory Rate 20 18 20 Blood Pressure 104/67 108/59 L Pulse Oximetry 95 97 95 08/16/21 09:15 08/16/21 09:31 08/16/21 16:28 Temperature 97.3 F L 97.5 F L Pulse Rate 92 110 H 107 H Respiratory Rate 20 20 Blood Pressure 118/74 113/71 Pulse Oximetry 95 95 Intake/Output Intake/Output: Intake & Output 08/13/21 08/14/21 08/15/21 08/16/21 23:59 23:59 23:59 23:59 Intake Total 878.8 700 870 290 Output Total 1350 250 200 Balance -471.2 700 620 90 Meds/Results Medications: Active Medications Generic Name Dose Route Start Last Admin Trade Name Freq PRN Reason Stop Dose Admin Acetaminophen 650 mg 08/16/21 17:29 Acetaminophen 325 Mg Tablet PO Q4H PRN Pain Rated 1-6 or Headache Hydrocodone Bitart/Acetaminophen
[2021-08-16 22:21] LABS: Glucose Point of Care 195 mg/dl (65-105)
[2021-08-17] MEDS: HYDROcodone/acetaminophen (*CRX) 5-325 MG TABLET 1 TAB PO ×2 (00:11→18:35)
[2021-08-17 05:39] VITALS: BP 102/62; PULSE 73; RESP 18; TEMP 36.2; O2SAT 96
[2021-08-17] MEDS: ATORVASTATIN 10 MG TABLET PO (08:48)
[2021-08-17] MEDS: CLOPIDOGREL BISULFATE 75 MG TABLET PO (08:48)
[2021-08-17] MEDS: ASPIRIN 81 MG CHEWABLE TABLET PO (08:48)
[2021-08-17 08:49] VITALS: PULSE 78
[2021-08-17] MEDS: CITALOPRAM HYDROBROMIDE 20 MG TABLET PO (08:49)
[2021-08-17] MEDS: LOSARTAN POTASSIUM 100 MG TABLET PO (08:49)
[2021-08-17] MEDS: METOPROLOL SUCCINATE EXT REL 50 MG TABCR PO (08:49)
[2021-08-17 09:55] VITALS: O2SAT 94
[2021-08-17] MEDS: ACETAMINOPHEN 325 MG TABLET 650 MG PO ×2 (10:33→21:12)
[2021-08-17 14:00] VITALS: BP 90/59; PULSE 88; RESP 18; TEMP 36.2; O2SAT 99
--- NOTE | 2021-08-17 15:31 | PM.IMPN ---
Progress Note: A&P Assessment and Plan (1) Severe aortic stenosis: Code(s): I35.0 - Nonrheumatic aortic (valve) stenosis Status: Acute (2) Non-ST elevation [place] (NSTEMI): Code(s): I21.4 - Non-ST elevation (NSTEMI) myocardial infarction Status: Acute (3) Hyperlipidemia associated with type 2 diabetes mellitus: Code(s): E11.69 - Type 2 diabetes mellitus with other specified complication; E78.5 - Hyperlipidemia, unspecified Status: Acute (4) Chronic renal insufficiency, stage III (moderate): Code(s): N18.3 - Chronic kidney disease, stage 3 (moderate) Status: Acute (5) Type 2 diabetes mellitus without complication, without long-term current use of insulin: Code(s): E11.9 - Type 2 diabetes mellitus without complications Status: Acute (6) Essential hypertension: Code(s): I10 - Essential (primary) hypertension Status: Acute (7) Anxiety: Code(s): F41.9 - Anxiety disorder, unspecified Status: Acute Additional Plan 08/13/21 Management per Cardiology, concurrently on aspirin, Lipitor, losartan, metoprolol. Was previously on a heparin drip, this was discontinued. Consider adding Plavix. Would recommend aortic valve replacement discussion, risks versus benefits, with Cardiology Controlled on metformin, consistently with an A1c under 7, does not appear to have been checked recently, will order Unable to tolerate statins 08/14/21 ASA/plavix started cont on BB is taking lipitor but previously reported Statin intolerance will monitor chest pain -> tylenol and norco w morphine x break through c/s PT/OT c/s CC x SNF planning 08/15/21 pt doing ok daughters bedside no new complaints chest pain resolving transfer to 3rd floor when bed available 08/16/21 dc nitro patch tylenol for WESTON SL nitro PRN x chest pain morphine for CP norco PRN x shoulder sk/mus pain PT/OT transfer to private room when available pending transfer to rehab for improved level of fxn prior to returning home pt would like to live independently under the care of hospice at home possible dc tomorrow 08/17/21 insurance denied SNF healthcare administrator aware cont supportive care card cath ? hospice ? defer to healthcare administrator dc planning Subjective Date/time seen: 08/17/21 15:31 pt has been denied by [employer] authorization to go to SNF for rehab prior to returning home because she could have a CO w at SNF. I will discuss reversal of code status and card cath w family and pt as per [employer] insurance. Pt should be able to qualify for rehab after PCI. video production coordinator aware of denial Daughter of pt advised she can and should appeal insurance decision since it is in contra of her mother's adequate recovery s/p Acute CO Exam Narrative: GEN: NAD, AAOx3, cooperative HEENT: NCAT, MMM, EOMI Neck: no JVD Skin Chest wall: NTTP Lungs: symmetric chest rise no use of accessory muscles Abd: soft, NT, ND Ext: moves all, no cyanosis, no clubbing Neuro: cognition WNL, moves all extremities equally, CN intact Psych: mood and affect congruent Objective Data Vital Signs Vital Signs: Vital Signs - 24 hr 08/16/21 16:28 08/16/21 20:00 08/16/21 21:37 Temperature 97.5 F L 97.9 F Pulse Rate 107 H 90 Respiratory Rate 20 18 Blood Pressure 113/71 100/63 Pulse Oximetry 95 92 98 08/17/21 05:39 08/17/21 08:49 08/17/21 09:55 Temperature 97.2 F L Pulse Rate 73 78 Respiratory Rate 18 Blood Pressure 102/62 Pulse Oximetry 96 94 Intake/Output Intake/Output: Intake & Output 08/14/21 08/15/21 08/16/21 08/17/21 23:59 23:59 23:59 23:59 Intake Total 700 870 610 486 Output Total 250 200 400 Balance 700 620 410 86 Meds/Results Medications: Active Medications Generic Name Dose Route Start Last Admin Trade Name Freq PRN Reason Stop Dose Admin Acetaminophen 650 mg 08/16/21 17:29 08/17/21 10:33 Acetaminophen 325 Mg Tablet PO 650 mg Q4H PRN Administ
[2021-08-17] MEDS: NITROGLYCERIN SL 0.4 MG TABLET SUBLINGUAL (18:37)
[2021-08-17 21:35] VITALS: BP 97/58; PULSE 91; RESP 18; TEMP 36.2; O2SAT 96
[2021-08-18] VITALS (7 sets, daily range): BP systolic 95–110; BP diastolic 62–68; PULSE 84–100; RESP 14–20; TEMP 35.6–36.4; O2SAT 14–97
[2021-08-18] MEDS: ACETAMINOPHEN 325 MG TABLET 650 MG PO (01:34)
[2021-08-18] MEDS: ATORVASTATIN 10 MG TABLET PO (08:15)
[2021-08-18] MEDS: CITALOPRAM HYDROBROMIDE 20 MG TABLET PO (08:15)
[2021-08-18] MEDS: METOPROLOL SUCCINATE EXT REL 50 MG TABCR PO (08:15)
[2021-08-18] MEDS: CLOPIDOGREL BISULFATE 75 MG TABLET PO (08:15)
[2021-08-18] MEDS: LOSARTAN POTASSIUM 100 MG TABLET PO (08:15)
[2021-08-18] MEDS: ASPIRIN 81 MG CHEWABLE TABLET PO (08:15)
[2021-08-18] MEDS: HYDROcodone/acetaminophen (*CRX) 5-325 MG TABLET 1 TAB PO (08:17)
--- NOTE | 2021-08-18 08:35 | PCPTNOTE ---
Did not see patient for therapy today per RN.
--- NOTE | 2021-08-18 09:07 | PM.IMPN ---
Progress Note: A&P Assessment and Plan (1) Severe aortic stenosis: Code(s): I35.0 - Nonrheumatic aortic (valve) stenosis Status: Acute (2) Non-ST elevation NM (NSTEMI): Code(s): I21.4 - Non-ST elevation (NSTEMI) myocardial infarction Status: Acute (3) Hyperlipidemia associated with type 2 diabetes mellitus: Code(s): E11.69 - Type 2 diabetes mellitus with other specified complication; E78.5 - Hyperlipidemia, unspecified Status: Acute (4) Chronic renal insufficiency, stage III (moderate): Code(s): N18.3 - Chronic kidney disease, stage 3 (moderate) Status: Acute (5) Type 2 diabetes mellitus without complication, without long-term current use of insulin: Code(s): E11.9 - Type 2 diabetes mellitus without complications Status: Acute (6) Essential hypertension: Code(s): I10 - Essential (primary) hypertension Status: Acute (7) Anxiety: Code(s): F41.9 - Anxiety disorder, unspecified Status: Acute Additional Plan 08/13/21 Management per Cardiology, concurrently on aspirin, Lipitor, losartan, metoprolol. Was previously on a heparin drip, this was discontinued. Consider adding Plavix. Would recommend aortic valve replacement discussion, risks versus benefits, with Cardiology Controlled on metformin, consistently with an A1c under 7, does not appear to have been checked recently, will order Unable to tolerate statins 08/14/21 ASA/plavix started cont on BB is taking lipitor but previously reported Statin intolerance will monitor chest pain -> tylenol and norco w morphine x break through c/s PT/OT c/s CC x SNF planning 08/15/21 pt doing ok daughters bedside no new complaints chest pain resolving transfer to 3rd floor when bed available 08/16/21 dc nitro patch tylenol for WESTON SL nitro PRN x chest pain morphine for CP norco PRN x shoulder sk/mus pain PT/OT transfer to private room when available pending transfer to rehab for improved level of fxn prior to returning home pt would like to live independently under the care of hospice at home possible dc tomorrow 08/17/21 insurance denied SNF healthcare educator aware cont supportive care card cath ? hospice ? defer to healthcare educator dc planning 08/18/21 hospice consult cont supportive care Fiorecet for WESTON lasix for resp symptoms dulcolax for constipation possible dc in 24-48hrs when family has arranged safe transfer of custodial Subjective Date/time seen: 08/18/21 09:07 meeting w hospice today, appropriately they have declined change of code status and intervention to obtain auth from [employer]. Deeply disappointing this is the treatment Yvette receives from an insurance she pays for. pt complains of constipation cough and headache Exam Narrative: GEN: NAD, AAOx3, cooperative HEENT: NCAT, MMM, EOMI Neck: no JVD Skin Chest wall: NTTP Lungs: symmetric chest rise no use of accessory muscles , crackles Abd: soft, NT, ND Ext: moves all, no cyanosis, no clubbing Neuro: cognition WNL, moves all extremities equally, CN intact, no focal deficits Psych: mood and affect congruent Objective Data Vital Signs Vital Signs: Vital Signs - 24 hr 08/17/21 09:55 08/17/21 14:00 08/17/21 21:35 Temperature 97.2 F L 97.1 F L Pulse Rate 88 91 Respiratory Rate 18 18 Blood Pressure 90/59 L 97/58 L Pulse Oximetry 94 99 96 08/18/21 06:00 08/18/21 08:15 Temperature 96.1 F L Pulse Rate 99 90 Respiratory Rate 18 Blood Pressure 96/64 L Pulse Oximetry 96 Intake/Output Intake/Output: Intake & Output 08/15/21 08/16/21 08/17/21 08/18/21 23:59 23:59 23:59 23:59 Intake Total 044 662 1586 240 Output Total 250 200 400 Balance 620 410 798 240 Meds/Results Medications: Active Medications Generic Name Dose Route Start Last Admin Trade Name Freq PRN Reason Stop Dose Admin Acetaminophen 650 mg 08/16/21 17:29 08/18/21 01:34 Acetaminophen 325 Mg Tablet PO 650 mg
[2021-08-18] MEDS: ACETAMINOPHEN/BUTALBITAL/CAFFEINE 325-50-40 MG TABLET (FIORICET) 1 TAB PO (12:16)
[2021-08-18] MEDS: BISACODYL 10 MG SUPPOSITORY RECTAL (12:17)
[2021-08-18] MEDS: FUROSEMIDE INJ 40 MG/4 ML VIAL 20 MG IV PUSH (12:17)
--- NOTE | 2021-08-18 12:48 | PCOTNOTE ---
Due to pt's complaints of chest pain and headache earlier in the AM and during the night, RN advised to not see pt today for therapy. Will continue per POC duration/frequency tomorrow.
[2021-08-18] MEDS: MORPHINE SULFATE (*CRX) 2 MG/ML INJ IV PUSH ×4 (13:52→21:51)
[2021-08-19 04:45] VITALS: BP 106/64; PULSE 106; RESP 18; TEMP 36.3; O2SAT 94
[2021-08-19] MEDS: MORPHINE SULFATE (*CRX) 2 MG/ML INJ IV PUSH ×5 (04:57→17:34)
[2021-08-19 08:00] VITALS: O2SAT 94
[2021-08-19 08:12] VITALS: O2SAT 94
[2021-08-19 08:40] VITALS: PULSE 106
[2021-08-19] MEDS: ASPIRIN 81 MG CHEWABLE TABLET PO (08:40)
[2021-08-19] MEDS: CITALOPRAM HYDROBROMIDE 20 MG TABLET PO (08:40)
[2021-08-19] MEDS: LOSARTAN POTASSIUM 100 MG TABLET PO (08:40)
[2021-08-19] MEDS: ATORVASTATIN 10 MG TABLET PO (08:40)
[2021-08-19] MEDS: METOPROLOL SUCCINATE EXT REL 50 MG TABCR PO (08:40)
[2021-08-19] MEDS: CLOPIDOGREL BISULFATE 75 MG TABLET PO (08:40)
--- NOTE | 2021-08-19 09:54 | PCPTNOTE ---
Attempted to see patient for Physical Therapy session. Patient was sitting up in a chair and requested to lay down. Patient was assisted back to bed with minimal assist for the transfer and SBA for bed mobility. Patient declined participating with LE exercises this date.
[2021-08-19 14:00] VITALS: BP 103/88; PULSE 102; RESP 22; TEMP 36.1; O2SAT 92
--- NOTE | 2021-08-19 18:00 | PM.IMPN ---
Progress Note: A&P Assessment and Plan (1) Severe aortic stenosis: Code(s): I35.0 - Nonrheumatic aortic (valve) stenosis Status: Acute (2) Non-ST elevation [place] (NSTEMI): Code(s): I21.4 - Non-ST elevation (NSTEMI) myocardial infarction Status: Acute (3) Hyperlipidemia associated with type 2 diabetes mellitus: Code(s): E11.69 - Type 2 diabetes mellitus with other specified complication; E78.5 - Hyperlipidemia, unspecified Status: Acute (4) Chronic renal insufficiency, stage III (moderate): Code(s): N18.3 - Chronic kidney disease, stage 3 (moderate) Status: Acute (5) Type 2 diabetes mellitus without complication, without long-term current use of insulin: Code(s): E11.9 - Type 2 diabetes mellitus without complications Status: Acute (6) Essential hypertension: Code(s): I10 - Essential (primary) hypertension Status: Acute (7) Anxiety: Code(s): F41.9 - Anxiety disorder, unspecified Status: Acute Additional Plan 08/13/21 Management per Cardiology, concurrently on aspirin, Lipitor, losartan, metoprolol. Was previously on a heparin drip, this was discontinued. Consider adding Plavix. Would recommend aortic valve replacement discussion, risks versus benefits, with Cardiology Controlled on metformin, consistently with an A1c under 7, does not appear to have been checked recently, will order Unable to tolerate statins 08/14/21 ASA/plavix started cont on BB is taking lipitor but previously reported Statin intolerance will monitor chest pain -> tylenol and norco w morphine x break through c/s PT/OT c/s CC x SNF planning 08/15/21 pt doing ok daughters bedside no new complaints chest pain resolving transfer to 3rd floor when bed available 08/16/21 dc nitro patch tylenol for WESTON SL nitro PRN x chest pain morphine for CP norco PRN x shoulder sk/mus pain PT/OT transfer to private room when available pending transfer to rehab for improved level of fxn prior to returning home pt would like to live independently under the care of hospice at home possible dc tomorrow 08/17/21 insurance denied SNF team primary care physician aware cont supportive care card cath ? hospice ? defer to team primary care physician dc planning 08/18/21 hospice consult cont supportive care Fiorecet for WESTON lasix for resp symptoms dulcolax for constipation possible dc in 24-48hrs when family has arranged safe transfer of prison 08/19/21 miralax, Proctofoam pt has signed w [facility] DME and assistance w care should be set up for tomorrow in pts home anticipate dc home tomorrow Subjective Date/time seen: 08/19/21 18:00 Daughter bedside very of set states that her mother had a lot of pain and discomfort was a Dulcolax suppository yesterday her hemorrhoids alert and that she was quite aggressively by staff during cleaning. She is reassured that that was not our intention in our very sorry. I have advised her that all start a treatment for hemorrhoids and will start MiraLax daily so we can keep her stools soft and less irritating or aggravating of the hemorrhoid. Patient overall states that she is feeling better her headache is improved as well as her ches paint Exam Narrative: GEN: NAD, AAOx3, cooperative HEENT: NCAT, MMM, EOMI Neck: no JVD Lungs: symmetric chest rise no use of accessory muscles Abd: soft, NT, ND Ext: moves all, no cyanosis, no clubbing Neuro: cognition WNL, moves all extremities equally, CN intact Psych: mood and affect congruent Objective Data Vital Signs Vital Signs: Vital Signs - 24 hr 08/18/21 20:58 08/18/21 21:00 08/19/21 04:45 Temperature 97.6 F 97.4 F L Pulse Rate 100 106 H Respiratory Rate 20 18 Blood Pressure 110/62 106/64 Pulse Oximetry 97 97 94 08/19/21 08:00 08/19/21 08:12 08/19/21 08:40 Temperature Pulse Rate 106 H Respiratory Rate Blood Pressure Pulse Oximetry 94 94 08/19/21 14:00 Temperature 96.9 F L Pu
[2021-08-19] MEDS: ACETAMINOPHEN/BUTALBITAL/CAFFEINE 325-50-40 MG TABLET (FIORICET) 1 TAB PO (18:17)
[2021-08-19] MEDS: HYDROCORTISONE/PRAMOX 1% FOAM 10 GM CAN 1 APPLIC RECTAL (21:20)
[2021-08-19 22:00] VITALS: BP 107/59; PULSE 69; RESP 18; TEMP 36.3; O2SAT 97
[2021-08-19] MEDS: ACETAMINOPHEN 325 MG TABLET 650 MG PO (22:53)
[2021-08-19] MEDS: HYDROcodone/acetaminophen (*CRX) 5-325 MG TABLET 1 TAB PO (22:53)
[2021-08-20 02:25] VITALS: O2SAT 93
[2021-08-20] MEDS: ALPRAZolam (*CRX) 0.25 MG TABLET PO ×2 (02:41→10:09)
[2021-08-20] MEDS: ACETAMINOPHEN/BUTALBITAL/CAFFEINE 325-50-40 MG TABLET (FIORICET) 1 TAB PO (02:41)
[2021-08-20] MEDS: HYDROcodone/acetaminophen (*CRX) 5-325 MG TABLET 1 TAB PO (04:30)
[2021-08-20 05:42] VITALS: BP 116/77; PULSE 116; RESP 25; O2SAT 91
[2021-08-20 09:55] VITALS: PULSE 80; O2SAT 97
[2021-08-20] MEDS: CLOPIDOGREL BISULFATE 75 MG TABLET PO (09:55)
[2021-08-20] MEDS: ASPIRIN 81 MG CHEWABLE TABLET PO (09:55)
[2021-08-20] MEDS: LOSARTAN POTASSIUM 100 MG TABLET PO (09:55)
[2021-08-20] MEDS: METOPROLOL SUCCINATE EXT REL 50 MG TABCR PO (09:55)
[2021-08-20] MEDS: CITALOPRAM HYDROBROMIDE 20 MG TABLET PO (09:55)
[2021-08-20] MEDS: ATORVASTATIN 10 MG TABLET PO (09:56)
--- NOTE | 2021-08-20 10:40 | PC.NURSE ---
Patient noted this morning to have increased difficulty breathing. Abdominal breathing noted. Restlessness noted. This nurse notified Dr. Bassett. After discussing with family and provider, patient to be re-evaluated by [facility] to determine in patient hospice needs. Call made to care coordination. Care coordination to notify [facility].
[2021-08-20] MEDS: MORPHINE SULFATE (*CRX) 2 MG/ML INJ IV PUSH ×2 (11:06→13:30)
[2021-08-20] MEDS: FUROSEMIDE INJ 40 MG/4 ML VIAL IV PUSH (11:29)
--- NOTE | 2021-08-20 13:14 | PM.DS ---
DS: Admitting Diagnosis Discharge Date 08/20/21 Admitting Diagnosis (1) Non-ST elevation [place] (NSTEMI): Code(s): I21.4 - Non-ST elevation (NSTEMI) myocardial infarction Status: Acute (2) Severe aortic stenosis: Code(s): I35.0 - Nonrheumatic aortic (valve) stenosis Status: Acute DS: Discharge Diagnosis Discharge Diagnosis (1) Severe aortic stenosis: Code(s): I35.0 - Nonrheumatic aortic (valve) stenosis Status: Acute (2) Non-ST elevation NC (NSTEMI): Code(s): I21.4 - Non-ST elevation (NSTEMI) myocardial infarction Status: Acute (3) Hyperlipidemia associated with type 2 diabetes mellitus: Code(s): E11.69 - Type 2 diabetes mellitus with other specified complication; E78.5 - Hyperlipidemia, unspecified Status: Acute (4) Chronic renal insufficiency, stage III (moderate): Code(s): N18.3 - Chronic kidney disease, stage 3 (moderate) Status: Acute (5) Type 2 diabetes mellitus without complication, without long-term current use of insulin: Code(s): E11.9 - Type 2 diabetes mellitus without complications Status: Acute (6) Essential hypertension: Code(s): I10 - Essential (primary) hypertension Status: Acute (7) Anxiety: Code(s): F41.9 - Anxiety disorder, unspecified Status: Acute DS: Summary Hospital Course Reason for hospitalization: chest pain Hospital Course: 08/13/21 Management per Cardiology, concurrently on aspirin, Lipitor, losartan, metoprolol. Was previously on a heparin drip, this was discontinued. Consider adding Plavix. Would recommend aortic valve replacement discussion, risks versus benefits, with Cardiology Controlled on metformin, consistently with an A1c under 7, does not appear to have been checked recently, will order Unable to tolerate statins 08/14/21 ASA/plavix started cont on BB is taking lipitor but previously reported Statin intolerance will monitor chest pain -> tylenol and norco w morphine x break through c/s PT/OT c/s CC x SNF planning 08/15/21 pt doing ok daughters bedside no new complaints chest pain resolving transfer to 3rd floor when bed available 08/16/21 dc nitro patch tylenol for WESTON SL nitro PRN x chest pain morphine for CP norco PRN x shoulder sk/mus pain PT/OT transfer to private room when available pending transfer to rehab for improved level of fxn prior to returning home pt would like to live independently under the care of hospice at home possible dc tomorrow 08/17/21 insurance denied SNF animal care attendant aware cont supportive care card cath ? hospice ? defer to animal care attendant dc planning 08/18/21 hospice consult cont supportive care Fiorecet for [facility] lasix for resp symptoms dulcolax for constipation possible dc in 24-48hrs when family has arranged safe transfer of long term 08/19/21 miralax, Proctofoam pt has signed w [facility] hospice DME and assistance w care should be set up for tomorrow in pts home anticipate dc home tomorrow 08/20/21 pt w uncontrolled pain air hunger pulm edema Lasix IV morphine discharge to [facility] inpt hospice x ongoing care Time Spent with Patient Time attestation: Total time spent providing and/or coordinating discharge services: Time spent: Greater than 30 minutes Exam Narrative: GEN: NAD, AAOx3, cooperative, ill appearing in pain HEENT: NCAT, MMM, EOMI Lungs: symmetric chest rise + use of accessory muscles O2 sats 95% on 4L NC but uncomfortable and SOB Abd: soft, NT, ND Ext: moves all, no cyanosis, no clubbing Neuro: cognition WNL, moves all extremities equally, CN intact Psych: mood and affect congruent anxious Discharge Plan Discharge Attending physician on discharge: Airam Bassett Consulting providers: Rabia Aguirre Discharging Clinician: Airam Bassett Anticipated Discharge Date/Time: 08/14/21 12:00 Patient Disposition: Hospice - Medical Facility Activity: as tolerated Diet: heart healthy and di
[2021-08-20] MEDS: LORazepam INJ (*CRX) 2 MG/ML VIAL 0.5 MG IV PUSH (13:30)
--- NOTE | 2021-08-20 13:38 | PC.NURSE ---
Patient admitted to [facility] services in patient. New Visit number obtained.
== END 2021-08-20 13:40 | disposition hospice, inpatient (51) ==
LOC: ANHED 20:52 → ANHIMU 23:47 → ANH3MEDSUR 08-20 13:14 → ANHIMU 08-28 11:25
PROVIDERS: Emergency Medicine; Hospitalist; Internal Medicine; Admitting Provider Internal Medicine; Emergency Provider Emergency Medicine; PCP Family Medicine; Visit Provider Student in an Organized Health Care Education/Training Program
DX: I21.4 Non-ST elevation (NSTEMI) myocardial infarction (principal); I35.0 Nonrheumatic aortic (valve) stenosis; I65.22 Occlusion and stenosis of left carotid artery; I05.0 Rheumatic mitral stenosis; N18.30 Chronic kidney disease, stage 3 unspecified; I12.9 Hypertensive chronic kidney disease with stage 1 through stage 4 chronic kidney disease, or unspecified chronic kidney disease; E11.22 Type 2 diabetes mellitus with diabetic chronic kidney disease; E11.40 Type 2 diabetes mellitus with diabetic neuropathy, unspecified; E78.5 Hyperlipidemia, unspecified; E53.8 Deficiency of other specified B group vitamins; D50.9 Iron deficiency anemia, unspecified; F41.9 Anxiety disorder, unspecified; Z79.899 Other long term (current) drug therapy; Z85.820 Personal history of malignant melanoma of skin; Z20.822 Contact with and (suspected) exposure to COVID-19
CPT/HCPCS: 36415; 51701; 71046; 80048; 80053; 81001; 82948; 83036; 83735; 83880; 84484; 85025; 85610; 85730; 87086; 87426; 93005; 93306; 96365; 96366; 96374; 96375; 96376; 97110; 97161; 97165; 97530; 97535; 99285; A9270; C9803; G0378; J1644; J1940; J2060; J2270; J2405

== ENCOUNTER 2021-08-20 12:00 | HOS | payer OTHER, MEDICARE, SELFPAY ==
[2021-08-20 14:13] VITALS: BMI 23.0
[2021-08-20] MEDS: MORPHINE SULFATE INJ (*CRX) 50 MG in SODIUM CHLORIDE 0.9% IV 95 ML IV CONT (15:14)
--- NOTE | 2021-08-20 16:04 | PCNFU ---
Nutrition Follow-Up Complete: Pt discharged to hospice today (08/20/21). No further nutritional needs. No further nutritional interventions.
[2021-08-20 16:10] VITALS: O2SAT 93
--- NOTE | 2021-08-20 16:58 | PM.IMHP ---
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 She has had other episodes of chest discomfort and shortness of breath at a been treated medically. She refused surgery for her aortic valve disease. On August 12 she was admitted with chest pain and shortness of breath and elevated cardiac enzymes consistent with non ST elevation myocardial infarction. She is treated with beta-blockers nitrates and furosemide. She continued to decline. She again declined surgery. Because of uncontrolled shortness of breath she wished comfort care only and was admitted to the inpatient hospice service for symptom management. Review of Systems Review of Systems: ROS unobtainable: Yes unobtainable due to medical condition PMFSH Past Medical History Medical History Anxiety Aortic stenosis Severe aortic stenosis noted on echocardiogram 01/2021 valve area 0.8, EF 70%, grade 1 diastolic dysfunction Chronic renal insufficiency, stage III (moderate) Cystitis Diabetic neuropathy Essential hypertension Functional diarrhea H/O Malignant melanoma Excised from her nose Hyperlipidemia associated with type 2 diabetes mellitus Intolerant to statins Iron deficiency anemia Memory loss Moderate mitral valve stenosis Stenosis of left carotid artery Type 2 diabetes mellitus Vitamin B12 deficiency Surgical History Surgical History H/O: hysterectomy History of appendectomy History of left-sided carotid endarterectomy (02/2016) History of tonsillectomy and adenoidectomy Family History Family History Father , At age 102 Family history of glaucoma Mother , At age 74 Breast cancer Daughter Diabetes mellitus Social History Social History Social History: She lives in her own home. She is . Code status: DNR/DNI Surrogate decision maker: She wishes the responsibility to be was shared between her 3 daughters. Smoking status: Never smoker Second hand tobacco smoke exposure: No Alcohol intake: never Substance use: current Substance use type: does not use Gender identity (if verbalized by the patient): Female Spiritual care concerns: No Meds Home Medications and Allergies Home Medications Medication Instructions Recorded Confirmed Type atorvastatin 10 mg tablet 10 mg PO DAILY #90 tablet 11/27/20 08/12/21 Rx citalopram 20 mg tablet 20 mg PO DAILY #90 tablet 06/18/21 08/12/21 Rx losartan 100 mg tablet 100 mg PO DAILY #90 tablet 06/18/21 08/12/21 Rx metformin 500 mg tablet 500 mg PO BID #180 tablet 06/18/21 08/12/21 Rx metoprolol succinate 50 mg 50 mg PO DAILY #90 tablet 06/18/21 08/12/21 Rx tablet,extended release 24 hr Allergies Allergy/AdvReac Type Severity Reaction Status Date / Time iron AdvReac Unknown Nausea Verified 08/20/21 11:44 [id number]-GNW-GtT Reductase AdvReac Unknown SOME CAUSE Verified 08/20/21 11:44 Inhibitor SEVERE LEG [Vbqdvqu-Zxf-Qjr Reductase CRAMPS Inhibitor] Exam Narrative: Chronically ill-appearing elderly female lying in hospital bed sleeping. Neck without JVD. Chest slight expiratory wheeze anteriorly with diminished breath sounds at lower lungs. Heart regular rate with harsh systolic ejection murmur right upper sternal border Extremities no edema Abdomen hypoactive bowel sounds soft no mass palpable Musculoskeletal no deformities to visual inspection Neurologic cranial nerves symmetric to visual inspection Assessment and Plan Assessment and plan (1) Palliative care by specialist: Code(s): Z51.5 - Encounter for palliative care Status: Acute Assessment and
[2021-08-20] MEDS: MORPHINE SULFATE (*CRX) 4 MG/ML INJ IV PUSH (17:47)
[2021-08-20 22:00] VITALS: BP 86/64; PULSE 106; RESP 18; TEMP 36.3; O2SAT 95
[2021-08-21] MEDS: MORPHINE SULFATE (*CRX) 4 MG/ML INJ IV PUSH ×4 (02:03→21:11)
[2021-08-21] MEDS: LORazepam INJ (*CRX) 2 MG/ML VIAL 1 MG IV PUSH ×2 (05:58→13:08)
[2021-08-21 08:00] VITALS: BP 99/50; PULSE 95; RESP 16; TEMP 35.3; O2SAT 95
[2021-08-21] MEDS: MORPHINE SULFATE INJ (*CRX) 50 MG in SODIUM CHLORIDE 0.9% IV 95 ML IV CONT (13:17)
--- NOTE | 2021-08-21 16:39 | PM.IMPN ---
Progress Note: A&P Assessment and Plan (1) Palliative care by specialist: Code(s): Z51.5 - Encounter for palliative care Status: Acute Assessment and Plan: Meet inpatient hospice criteria due to requiring continuous IV morphine for control of dyspnea Morphine started 2 milligrams/hour due to initial 2 mg bolus not controlling her discomfort Morphine 4 mg hourly p.r.n. and lorazepam 1 mg every 4 hours p.r.n. Remainder palliative regimen as ordered 08/21: Continued current regimen (2) Severe aortic stenosis: Code(s): I35.0 - Nonrheumatic aortic (valve) stenosis Status: Acute (3) Non-ST elevation [place] (NSTEMI): Code(s): I21.4 - Non-ST elevation (NSTEMI) myocardial infarction Status: Acute (4) Type 2 diabetes mellitus without complication, without long-term current use of insulin: Code(s): E11.9 - Type 2 diabetes mellitus without complications Status: Acute (5) Essential hypertension: Code(s): I10 - Essential (primary) hypertension Status: Acute Subjective Date/time seen: 08/21/21 16:39 Interval history: 08/21 visit: Awakened during car groomer's prayer. Was lucid for several minutes. Comfortable otherwise. Daughters at bedside. Review of Systems Review of Systems: ROS unobtainable: Yes unobtainable due to medical condition Exam Narrative: Chronically ill-appearing elderly female lying in hospital bed sleeping. Neck without JVD. Chest slight expiratory wheeze anteriorly with diminished breath sounds at lower lungs. Heart regular rate with harsh systolic ejection murmur right upper sternal border Extremities no edema Abdomen hypoactive bowel sounds soft no mass palpable Musculoskeletal no deformities to visual inspection Neurologic cranial nerves symmetric to visual inspection Objective Data Vital Signs Vital Signs: Vital Signs - 24 hr 08/20/21 22:00 08/21/21 08:00 Temperature 97.4 F L 95.5 F L Pulse Rate 106 H 95 Respiratory Rate 18 16 Blood Pressure 86/64 L 99/50 L Pulse Oximetry 95 95 Intake/Output Intake/Output: Intake & Output 08/18/21 08/19/21 08/20/21 08/21/21 23:59 23:59 23:59 23:59 Intake Total 82 Output Total 850 Balance -768 Meds/Results Medications: Active Medications Generic Name Dose Route Start Last Admin Trade Name Freq PRN Reason Stop Dose Admin Artificial Tears 1 - 2 drop 08/20/21 14:30 Artificial Tears Ophth Soln 15 Ml Bottle EACH EYE Q12H PRN Dry Eye(s) Bisacodyl 10 mg 08/20/21 14:30 Bisacodyl 10 Mg Suppository RECTAL DAILY PRN Constipation Glycopyrrolate 0.1 mg 08/20/21 14:30 Glycopyrrolate Inj (*Sp) 0.2 Mg/Ml Vial IV PUSH Q4H PRN secretions Hydrocortisone Acetate 25 mg 08/20/21 15:00 Hydrocortisone Acetate 25 Mg Suppository RECTAL DAILY PRN HEMORRHOIDS Morphine Sulfate 50 mg/ Sodium 100 mls @ 4 mls/hr 08/20/21 15:00 08/21/21 13:17 Chloride IV CONT 2 mg/hr .Q24H FRANCHESKA 4 mls/hr Administration 2 MG/HR Lorazepam 1 mg 08/20/21 14:30 08/21/21 13:08 Lorazepam Inj (*Crx) 2 Mg/Ml Vial IV PUSH 1 mg Q4H PRN Administration ANXIETY/RESTLESSNESS Morphine Sulfate 4 mg 08/20/21 14:31 08/21/21 13:06 Morphine Sulfate (*Crx) 4 Mg/Ml Inj IV PUSH 4 mg Q1H PRN Administration Pain/SHORTNESS OF BREATH Prochlorperazine Edisylate 10 mg 08/20/21 14:30 Prochlorperazine Edisylate 10 Mg/2 Ml Vial IV PUSH Q6H PRN Nausea And Vomiting
[2021-08-21 20:00] VITALS: BP 110/45; PULSE 115; PULSE 95; RESP 10; RESP 16; TEMP 36.1; O2SAT 91; O2SAT 95
[2021-08-22] MEDS: GLYCOPYRROLATE INJ (*SP) 0.2 MG/ML VIAL 0.1 MG IV PUSH (06:19)
[2021-08-22 08:00] VITALS: BP 74/50; PULSE 98; RESP 14; TEMP 36.8; O2SAT 87
[2021-08-22] MEDS: MORPHINE SULFATE INJ (*CRX) 50 MG in SODIUM CHLORIDE 0.9% IV 95 ML IV CONT (11:55)
--- NOTE | 2021-08-22 16:52 | PM.IMPN ---
Progress Note: A&P Assessment and Plan (1) Palliative care by specialist: Code(s): Z51.5 - Encounter for palliative care Status: Acute Assessment and Plan: Meet inpatient hospice criteria due to requiring continuous IV morphine for control of dyspnea Morphine started 2 milligrams/hour due to initial 2 mg bolus not controlling her discomfort Morphine 4 mg hourly p.r.n. and lorazepam 1 mg every 4 hours p.r.n. Remainder palliative regimen as ordered 08/21: Continued current regimen 08/22: Discussed with daughters at bedside. No change in meds (2) Severe aortic stenosis: Code(s): I35.0 - Nonrheumatic aortic (valve) stenosis Status: Acute (3) Non-ST elevation [place] (NSTEMI): Code(s): I21.4 - Non-ST elevation (NSTEMI) myocardial infarction Status: Acute (4) Type 2 diabetes mellitus without complication, without long-term current use of insulin: Code(s): E11.9 - Type 2 diabetes mellitus without complications Status: Acute (5) Essential hypertension: Code(s): I10 - Essential (primary) hypertension Status: Acute Subjective Date/time seen: 08/22/21 16:52 Interval history: 08/22 visit: Asleep all day. Only breakthough glycoprrholate this am. Review of Systems Review of Systems: ROS unobtainable: Yes unobtainable due to medical condition Exam Narrative: Chronically ill-appearing elderly female lying in hospital bed sleeping. Neck without JVD. Chest slight expiratory wheeze anteriorly with diminished breath sounds at lower lungs. Heart regular rate with harsh systolic ejection murmur right upper sternal border Extremities no edema Abdomen hypoactive bowel sounds soft no mass palpable Musculoskeletal no deformities to visual inspection Neurologic cranial nerves symmetric to visual inspection Objective Data Vital Signs Vital Signs: Vital Signs - 24 hr 08/21/21 20:00 08/22/21 08:00 Temperature 96.9 F L 98.3 F Pulse Rate 115 H 98 Respiratory Rate 10 L 14 Blood Pressure 110/45 L 74/50 L Pulse Oximetry 91 87 L Intake/Output Intake/Output: Intake & Output 08/19/21 08/20/21 08/21/21 08/22/21 23:59 23:59 23:59 23:59 Intake Total 82 100 Output Total 850 Balance -768 100 Meds/Results Medications: Active Medications Generic Name Dose Route Start Last Admin Trade Name Freq PRN Reason Stop Dose Admin Artificial Tears 1 - 2 drop 08/20/21 14:30 Artificial Tears Ophth Soln 15 Ml Bottle EACH EYE Q12H PRN Dry Eye(s) Bisacodyl 10 mg 08/20/21 14:30 Bisacodyl 10 Mg Suppository RECTAL DAILY PRN Constipation Glycopyrrolate 0.1 mg 08/20/21 14:30 08/22/21 06:19 Glycopyrrolate Inj (*Sp) 0.2 Mg/Ml Vial IV PUSH 0.1 mg Q4H PRN Administration secretions Hydrocortisone Acetate 25 mg 08/20/21 15:00 Hydrocortisone Acetate 25 Mg Suppository RECTAL DAILY PRN HEMORRHOIDS Morphine Sulfate 50 mg/ Sodium 100 mls @ 4 mls/hr 08/20/21 15:00 08/22/21 11:55 Chloride IV CONT 2 mg/hr .Q24H FRANCHESKA 4 mls/hr Administration 2 MG/HR Lorazepam 1 mg 08/20/21 14:30 08/21/21 13:08 Lorazepam Inj (*Crx) 2 Mg/Ml Vial IV PUSH 1 mg Q4H PRN Administration ANXIETY/RESTLESSNESS Morphine Sulfate 4 mg 08/20/21 14:31 08/21/21 21:11 Morphine Sulfate (*Crx) 4 Mg/Ml Inj IV PUSH 4 mg Q1H PRN Administration Pain/SHORTNESS OF BREATH Prochlorperazine Edisylate 10 mg 08/20/21 14:30 Prochlorperazine Edisylate 10 Mg/2 Ml Vial IV PUSH Q6H PRN Nausea And Vomiting
[2021-08-22] MEDS: MORPHINE SULFATE (*CRX) 4 MG/ML INJ IV PUSH (18:10)
[2021-08-22 18:19] VITALS: RESP 7
[2021-08-22 20:00] VITALS: BP 88/41; PULSE 105; RESP 6; TEMP 36.1; O2SAT 96
[2021-08-23] MEDS: MORPHINE SULFATE (*CRX) 4 MG/ML INJ IV PUSH (02:26)
[2021-08-23 02:34] VITALS: RESP 9
[2021-08-23 08:20] VITALS: O2SAT 94
--- NOTE | 2021-08-23 16:19 | PM.DDS ---
Discharge Summary Date and Time Date of : 08/23/21 Time of : 07:25 Provider Pronounced By: Alyson Hernandez RN Probable Cause of Probable Cause of : severe aortic stenosis Summary Hospital Course: Admitted for uncontrolled dyspnea. Medications titrated to comfort. Mrs. Charles peacefully. Additional Data Confirmation of as documented by pronouncing clinician: Pupillary Reflex, Palpable Pulses, Response to Stimuli, Heart Tones and Breath Sounds Name of Provider Notified: Dr. Ray Foote Time Provider Notified: 07:50 Family Requests Autopsy: No Electrical Experimental Mechanic Notified: Yes Date [facility] Notified of : 08/23/21 Time [facility] Notified of : 08:19
== END 2021-08-23 07:25 | disposition expired | DRG 951 ==
LOC: ANH3MEDSUR 08-24 14:29
PROVIDERS: Admitting Provider Internal Medicine; PCP Family Medicine; Visit Provider Internal Medicine
DX: Z51.5 Encounter for palliative care (principal); I21.4 Non-ST elevation (NSTEMI) myocardial infarction; D50.9 Iron deficiency anemia, unspecified; E78.5 Hyperlipidemia, unspecified; E11.40 Type 2 diabetes mellitus with diabetic neuropathy, unspecified; E11.22 Type 2 diabetes mellitus with diabetic chronic kidney disease; E11.69 Type 2 diabetes mellitus with other specified complication; I08.0 Rheumatic disorders of both mitral and aortic valves; I12.9 Hypertensive chronic kidney disease with stage 1 through stage 4 chronic kidney disease, or unspecified chronic kidney disease; N18.30 Chronic kidney disease, stage 3 unspecified; Z85.820 Personal history of malignant melanoma of skin; E53.8 Deficiency of other specified B group vitamins; Z66 Do not resuscitate; Z90.710 Acquired absence of both cervix and uterus; Z90.49 Acquired absence of other specified parts of digestive tract; Z79.84 Long term (current) use of oral hypoglycemic drugs
CPT/HCPCS: A9270; J2060; J2270